=== PATIENT | female | born 1965 | race Caucasian/White ===

== ENCOUNTER 2017-02-08 18:01 | Emergency (ER) | payer OTHER ==
[2017-02-08] MEDS ORDERED: Benztropine 1 MG Tab PO ONE (20:07)
[2017-02-08] MEDS ORDERED: Haloperidol Lactate 5 MG/ML SDV IM ONE (20:07)
[2017-02-08] MEDS ORDERED: Orphenadrine 100 MG Tab.ER PO STA (20:08)
[2017-02-08] MEDS ORDERED: Ondansetron 4 MG Tab.DIS PO ONE (20:08)
[2017-02-08] MEDS ORDERED: Acetaminophen/Butalbital/Caffeine 325-50-40 MG Tab PO ONE (20:09)
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
[2017-02-08 21:14] VITALS: BP 144/74
== END 2017-02-08 20:45 | disposition home or self-care (01) ==
LOC: JD.ED 18:01
DX: R51 Headache (principal); I10 Essential (primary) hypertension; E78.00 Pure hypercholesterolemia, unspecified; K21.9 Gastro-esophageal reflux disease without esophagitis; F41.8 Other specified anxiety disorders; E03.9 Hypothyroidism, unspecified; Z98.890 Other specified postprocedural states; Z79.899 Other long term (current) drug therapy; Z90.49 Acquired absence of other specified parts of digestive tract; Z90.710 Acquired absence of both cervix and uterus; Z96.651 Presence of right artificial knee joint; Z88.1 Allergy status to other antibiotic agents; Z88.2 Allergy status to sulfonamides; Z88.5 Allergy status to narcotic agent; Z88.8 Allergy status to other drugs, medicaments and biological substances
CPT/HCPCS: 96372; 99284; A9270; J1630; 99283

== ENCOUNTER 2017-04-07 19:00 | Emergency (ER) | payer OTHER ==
[2017-04-07 19:13] VITALS: BP 187/109
[2017-04-07] MEDS ORDERED: HYDROmorphone 1 MG/ML Syringe IM ONE (19:27)
[2017-04-07] MEDS ORDERED: LORazepam 1 MG Tab PO ONE (19:27)
--- NOTE | 2017-04-07 19:33 | EDM.PDOC ---
ED HPI GENERAL MEDICAL PROBLEM - General Chief Complaint: Behavioral/Psych Stated Complaint: ANXIETY Time Seen by Provider: 04/07/17 19:07 Source of Information: Reports: Patient History Limitations: Reports: No Limitations - History of Present Illness INITIAL COMMENTS - FREE TEXT/NARRATIVE: The patient presents with an anxiety attack and headache. She just found out this afternoon that her daughter overdosed and she has been admitted to a hospital in [place]. She is in the ICU but she is stable. That is all she can find out because at this point her daughter will not let them tell her more. She is crying in the room. She has some bad teeth and a problem with her jaw and she has chronic headaches. She now has a headache. She has no numbness or weakness. Onset: Gradual Duration: Hour(s): Location: Reports: Head Quality: Reports: Sharp Severity: Severe Improves with: Reports: None Worsens with: Reports: None Associated Symptoms: Reports: No Other Symptoms - Related Data Allergies Allergy/AdvReac Type Severity Reaction Status Date / Time erythromycin base Allergy Other Verified 04/07/17 19:13 Sulfa (Sulfonamide Allergy Hives Verified 04/07/17 19:13 Antibiotics) sulfamethoxazole Allergy Hives Verified 04/07/17 19:13 [From Bactrim] trimethoprim [From Bactrim] Allergy Hives Verified 04/07/17 19:13 meloxicam AdvReac Tachycardia Verified 04/07/17 19:13 Home Meds: Home Meds Cyclobenzaprine [Flexeril] 10 mg PO Q8HR PRN 03/09/14 [History] Gabapentin [Neurontin] 600 mg PO TID 03/09/14 [History] Salsalate 1,500 mg PO QAM 03/09/14 [History] Zolpidem [Ambien] 10 mg PO BEDTIME 03/09/14 [History] Propranolol [Inderal LA] 160 mg PO DAILY 03/12/15 [History] Calcium Carb/Vitamin D3/Vit K1 [Viactiv Soft Chew Tablet] 2 tab PO DAILY [History] Ondansetron [Zofran ODT] 4 mg PO Q6H PRN 03/21/15 [History] Hydrocodone/Acetaminophen [Hydrocodon-Acetaminophen 5-325] 1 tab PO Q4HR PRN [History] Salsalate 750 mg PO QPM 07/04/15 [History] Levothyroxine 25 mcg PO ACBREAKFAST 08/19/15 [History] Losartan [Cozaar] 25 mg PO DAILY 08/19/15 [History] DULoxetine [Cymbalta] 90 mg PO DAILY 09/18/16 [History] Multivitamin [Multivitamins] 2 tab PO DAILY 09/18/16 [History] atorvaSTATin [Lipitor] 10 mg PO DAILY 09/18/16 [History] Pantoprazole [ProTONIX] 40 mg PO DAILY 01/05/17 [History] LORazepam [Ativan] 1 mg PO Q8HR PRN #20 tablet 04/07/17 [Rx] Past Medical History - Past Health History Medical/Surgical History: Denies Medical/Surgical History Cardiovascular History: Reports: High Cholesterol, Hypertension Gastrointestinal History: Reports: GERD, PUD Genitourinary History: Reports: Urinary Incontinence Other Genitourinary History: dysuria 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: Other OB/BYN History: uterus removed, x3 vag del Musculoskeletal History: Reports: Back Pain, Chronic, Fracture, Fibromyalgia, Osteoarthritis Other Musculoskeletal History: multiple fx, herniated discs Neurological History: Reports: Headaches, Chronic, Seizure Psychiatric History: Reports: Anxiety, Depression Endocrine/Metabolic History: Reports: Hypothyroidism Hematologic History: Reports: Other (See Below) Other Hematologic History: x1 with hysterectomy - Past Surgical History HEENT Surgical History: Reports: Naso-Sinus Surgery, Tonsillectomy, Other (See Below) GI Surgical History: Reports: Appendectomy Neurological Surgical History: Reports: Lumbar Spine Musculoskeletal Surgical History: Reports: Knee Replacement, ORIF, Other (See Below) Social & Family History - Tobacco Use Smoking Status *Q: Never Smoker Second Hand Smoke Exposure: No - Caffeine Use Caffeine Use: Reports: None - Alcohol Use Days Per Week of Alcohol Use: 0 - Recreational Drug Use Recreational Drug Use: No - Living Situation & Occupation Living situation: Reports: , with Spouse Occupation: Employed ED ROS GENERAL - Review of Systems Review Of Systems: See Below Constitutional: Reports: No Symptoms HEENT: Reports: No Symptoms Respiratory: Reports: No Symptoms Cardiovascular: Reports: No Symptoms Endocrine: Reports: No Symptoms GI/Abdominal: Reports: No Symptoms : Reports: No Symptoms Musculoskeletal: Reports: No Symptoms Skin: Reports: No Symptoms Neurological: Reports: Headache Psychiatric: Reports: Anxiety ED EXAM, BEHAVIORAL HEALTH - Physical Exam Exam: See Below Exam Limited By: No Limitations General Appearance: Alert, Anxious (and crying) Ears: Normal External Exam Nose: Normal Inspection Head: Atraumatic, Normocephalic Neck: Normal Inspection Respiratory/Chest: No Respiratory Distress, Lungs Clear, Normal Breath Sounds Cardiovascular: Regular Rate, Rhythm, No Edema, No Murmur GI/Abdominal: Soft, Non-Tender, No Organomegaly, No Mass Back Exam: Normal Inspection Extremities: Normal Inspection COURSE, BEHAVIORAL HEALTH COMP - Course Vital Signs: Last Vital Signs Temp 97.6 F 04/07/17 19:09 Pulse 83 04/07/17 19:09 Resp 20 04/07/17 19:09 BP 187/109 H 04/07/17 19:09 Pulse Ox 99 04/07/17 19:09 Orders, Labs, Meds: Active Orders 24 hr Category Date Time Status HYDROmorphone [Dilaudid] Med 04/07/17 19:27 Once 1 mg IM ONETIME ONE LORazepam [Ativan] Med 04/07/17 19:27 Once 1 mg PO ONETIME ONE Re-Assessment/Re-Exam: I ordered some ativan for the anxiety and some dilaudid for her headache. I will discharge her with some ativan. Departure - Departure Time of Disposition: 19:35 Disposition: Home, Self-Care 01 Condition: good Clinical Impression: Anxiety, Migraine - Discharge Information Prescriptions: LORazepam [Ativan] 1 mg PO Q8HR PRN #20 tablet PRN Reason: Anxiety Referrals: Jody Becerra, MOLD SANDER [Primary Care Provider] - (As needed) Forms: ED Department Discharge Additional Instructions: Take the ativan every 8 hours as needed for anxiety. Continue to take your other meds as prescribed. Please return if you are worse. - My Orders Last 24 Hours: My Active Orders 04/07/17 19:27 HYDROmorphone [Dilaudid] 1 mg IM ONETIME ONE LORazepam [Ativan] 1 mg PO ONETIME ONE - Assessment/Plan Last 24 Hours: My Active Orders 04/07/17 19:27 HYDROmorphone [Dilaudid] 1 mg IM ONETIME ONE LORazepam [Ativan] 1 mg PO ONETIME ONE
== END 2017-04-07 20:50 | disposition home or self-care (01) ==
LOC: JD.ED 19:00
DX: G43.909 Migraine, unspecified, not intractable, without status migrainosus (principal); F41.9 Anxiety disorder, unspecified; I10 Essential (primary) hypertension; E78.00 Pure hypercholesterolemia, unspecified; K21.9 Gastro-esophageal reflux disease without esophagitis; M19.90 Unspecified osteoarthritis, unspecified site; F32.9 Major depressive disorder, single episode, unspecified; E03.9 Hypothyroidism, unspecified; Z90.710 Acquired absence of both cervix and uterus; Z88.1 Allergy status to other antibiotic agents; Z88.2 Allergy status to sulfonamides; Z88.8 Allergy status to other drugs, medicaments and biological substances; Z79.899 Other long term (current) drug therapy; Z98.890 Other specified postprocedural states; Z90.49 Acquired absence of other specified parts of digestive tract; Z96.659 Presence of unspecified artificial knee joint
CPT/HCPCS: 96372; 99284; A9270; J1170

== ENCOUNTER 2017-07-08 09:47 | Emergency (ER) | payer OTHER ==
[2017-07-08] MEDS ORDERED: Sodium Chloride 0.9% 10 ML Syringe FLUSH PRN (11:27)
[2017-07-08] MEDS ORDERED: Ondansetron 4 MG/2 ML SDV IVPUSH ONE (11:28)
[2017-07-08] MEDS ORDERED: Alum Hydrox/Mag Hydrox/Simeth 30 ML, Lidocaine 2% 15 ML PO ONE ×2 (11:28)
--- NOTE | 2017-07-08 11:34 | EDM.PDOC ---
ED HPI GENERAL MEDICAL PROBLEM - General Chief Complaint: Gastrointestinal Problem Stated Complaint: DIZZY,NOT SLEEPING,HEARTBURN Time Seen by Provider: 07/08/17 11:06 Source of Information: Reports: Patient History Limitations: Reports: No Limitations - History of Present Illness INITIAL COMMENTS - FREE TEXT/NARRATIVE: Patient is a 52-year-old female presents ED complaining of severe acid reflux, nausea/vomiting, dizziness, and a migraine headache. States she has a history of severe acid reflux and takes Carafate and also Protonix daily. States as of the past few days stress level has increased in symptoms have worsened. She has been burping up/vomiting stomach acid causing increased irritation to her esophagus. She did not sleep last night secondary to the discomfort. Attempted to elevate her head to alleviate any of symptoms with no relief. In addition she has felt dizzy for the past week and a half. Headache is located to the left side of her head retro-orbital worsened with exposure to light. Again she' s been mildly dizzy with onset of headache. She does take hydrocodone for headaches and chronic pain. She sees a pain specialist in [place] for chronic back pain and fibromyalgia. She has taken all her home medications as prescribed for this morning. This includes gabapentin, propranolol, calcium supplementation, hydrocodone, levothyroxine, losartan, Cymbalta, MVI, Lipitor, and Protonix. Has mild chest pain with no shortness of breath 2nd to acid reflux. Denies any radiation ofdiscomfort. Denies any blood in her emesis. No diarrhea or history constipation. BMs been normal with no blood present. Denies any dysuria. In addition also denies any vision changes, n/t, and or weakness. Headache Pain Score (Numeric/FACES): 8 - Related Data Allergies Allergy/AdvReac Type Severity Reaction Status Date / Time erythromycin base Allergy Other Verified 07/08/17 10:09 Sulfa (Sulfonamide Allergy Hives Verified 07/08/17 10:09 Antibiotics) sulfamethoxazole Allergy Hives Verified 07/08/17 10:09 [From Bactrim] trimethoprim [From Bactrim] Allergy Hives Verified 07/08/17 10:09 meloxicam AdvReac Tachycardia Verified 07/08/17 10:09 Home Meds: Home Meds Gabapentin [Neurontin] 600 mg PO TID 03/09/14 [History] Zolpidem [Ambien] 10 mg PO BEDTIME 03/09/14 [History] Propranolol [Inderal LA] 160 mg PO DAILY 03/12/15 [History] Calcium Carb/Vitamin D3/Vit K1 [Viactiv Soft Chew Tablet] 2 tab PO DAILY [History] Ondansetron [Zofran ODT] 4 mg PO Q6H PRN 03/21/15 [History] Hydrocodone/Acetaminophen [Hydrocodon-Acetaminophen 5-325] 1 tab PO Q4HR PRN [History] Levothyroxine 25 mcg PO ACBREAKFAST 08/19/15 [History] Losartan [Cozaar] 25 mg PO DAILY 08/19/15 [History] DULoxetine [Cymbalta] 90 mg PO DAILY 09/18/16 [History] Multivitamin [Multivitamins] 2 tab PO DAILY 09/18/16 [History] atorvaSTATin [Lipitor] 10 mg PO DAILY 09/18/16 [History] Pantoprazole [ProTONIX] 40 mg PO DAILY 01/05/17 [History] GI Cocktail 30 ml PO ONETIME PRN #2 bottle 07/08/17 [Rx] Past Medical History - Past Health History Medical/Surgical History: Denies Medical/Surgical History Cardiovascular History: Reports: High Cholesterol, Hypertension Gastrointestinal History: Reports: GERD, PUD Genitourinary History: Reports: Urinary Incontinence Other Genitourinary History: dysuria 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: Other OB/BYN History: uterus removed, x3 vag del Musculoskeletal History: Reports: Back Pain, Chronic, Fracture, Fibromyalgia, Osteoarthritis Other Musculoskeletal History: multiple fx, herniated discs Neurological History: Reports: Headaches, Chronic, Seizure Psychiatric History: Reports: Anxiety, Depression Endocrine/Metabolic History: Reports: Hypothyroidism Hematologic History: Reports: Other (See Below) Other Hematologic History: x1 with hysterectomy - Past Surgical History HEENT Surgical History: Reports: Naso-Sinus Surgery, Tonsillectomy, Other (See Below) GI Surgical History: Reports: Appendectomy Neurological Surgical History: Reports: Lumbar Spine Musculoskeletal Surgical History: Reports: Joint Replacement, Knee Replacement, ORIF Social & Family History - Tobacco Use Smoking Status *Q: Never Smoker Second Hand Smoke Exposure: No - Caffeine Use Caffeine Use: Reports: None - Alcohol Use Days Per Week of Alcohol Use: 0 - Recreational Drug Use Recreational Drug Use: No - Living Situation & Occupation Living situation: Reports: , with Spouse Occupation: Employed ED ROS GENERAL - Review of Systems Review Of Systems: See Below Constitutional: Reports: Malaise, Decreased Appetite. Denies: Fever, Chills HEENT: Reports: No Symptoms Respiratory: Denies: Shortness of Breath, Cough, Sputum Cardiovascular: Reports: Chest Pain (lower sternal border). Denies: Dyspnea on Exertion, Palpitations, PND GI/Abdominal: Reports: Abdominal Pain (epigastric), Nausea, Vomiting. Denies: Constipation, Diarrhea : Reports: No Symptoms Musculoskeletal: Reports: No Symptoms Neurological: Reports: Dizziness, Headache. Denies: Confusion, Numbness, Pre- Existing Deficit, Seizure, Syncope, Tingling, Difficulty Walking, Weakness Psychiatric: Reports: No Symptoms ED EXAM, GI/ABD - Physical Exam Exam: See Below Exam Limited By: No Limitations General Appearance: Alert, WD/WN, Mild Distress, Other (sitting in dark room ) Eyes: Bilateral: Normal Appearance (PERRL pupils dilated. ), EOMI, Nystagmus ( none found) Ears: Normal External Exam, Normal Canal, Hearing Grossly Normal, Normal TMs Nose: Normal Inspection Throat/Mouth: Normal Inspection, Normal Oropharynx, Normal Voice, No Airway Compromise Head: Atraumatic, Normocephalic Neck: Normal Inspection, Supple, Non-Tender, Full Range of Motion. No: Lymphadenopathy (L), Lymphadenopathy (R) Respiratory/Chest: No Respiratory Distress, Lungs Clear, Normal Breath Sounds, No Accessory Muscle Use, Chest Non-Tender Cardiovascular: Normal Peripheral Pulses, Regular Rate, Rhythm GI/Abdominal Exam: Normal Bowel Sounds, Soft, No Organomegaly, No Distention, Tender (epigastric region, mild) Back Exam: Normal Inspection, Full Range of Motion. No: CVA Tenderness (L), CVA Tenderness (R) Extremities: Normal Inspection, Normal Range of Motion, Non-Tender, No Pedal Edema, Normal Capillary Refill Neurological: Alert, Oriented, CN II-XII Intact, Normal Cognition, No Motor/ Sensory Deficits, Other (cerebellar fx intact; finger to nose, rapid alternating movements, heal to [place]. No facial droop, slurred speach, difficulty swallowing, or sensory/motor deficits. ) Psychiatric: Normal Affect, Normal Mood Skin Exam: Warm, Dry, Intact, Normal Color Course - Vital Signs Last Recorded V/S: Last Vital Signs Temp 97.6 F 07/08/17 10:06 Pulse 75 07/08/17 14:40 Resp 16 07/08/17 14:40 BP 122/70 07/08/17 14:40 Pulse Ox 98 07/08/17 14:40 - Orders/Labs/Meds Labs: Laboratory Tests 07/08/17 07/08/17 Range/Units 13:09 13:09 WBC 11.82 H (3.98-10.04) K/mm3 RBC 4.01 (3.98-5.22) M/mm3 Hgb 10.7 L (11.2-15.7) gm/L Hct 33.8 L (34.1-44.9) % MCV 84.3 (79.4-94.8) fl MCH 26.7 (25.6-32.2) pg MCHC 31.7 L (32.2-35.5) g/dl RDW Std Deviation 47.8 H (36.4-46.3) fL Plt Count 359 (182-369) K/mm3 MPV 9.7 (9.4-12.3) fl Neut % (Auto) 65.0 (34.0-71.1) % Lymph % (Auto) 19.0 L (19.3-51.7) % [place] % (Auto) 8.1 (4.7-12.5) % Eos % (Auto) 7.3 H (0.7-5.8) Baso % (Auto) 0.3 (0.1-1.2) % Neut # (Auto) 7.69 H (1.56-6.13) K/mm3 Lymph # (Auto) 2.24 (1.18-3.74) K/mm3 [place] # (Auto) 0.96 H (0.24-0.36) K/mm3 Eos # (Auto) 0.86 H (0.04-0.36) K/mm3 Baso # (Auto) 0.03 (0.01-0.08) K/mm3 Sodium 139 (136-145) mEq/L Potassium 4.1 (3.5-5.1) mEq/L Chloride 104 (98-107) mEq/L Carbon Dioxide 28 (21-32) mEq/L Anion Gap 11.1 (5-15) BUN 13 (7-18) mg/dL Creatinine 0.9 (0.55-1.02) mg/dL Est Cr Clr Drug Dosing 56.52 mL/min Estimated GFR (MDRD) > 60 (>60) mL/min BUN/Creatinine Ratio 14.4 (14-18) Glucose 87 (74-106) mg/dL Calcium 8.9 (8.5-10.1) mg/dL Total Bilirubin 0.3 (0.2-1.0) mg/dL AST 19 (15-37) U/L ALT 19 (14-59) U/L Alkaline Phosphatase 112 (46-116) U/L Troponin I < 0.017 (0.00-0.056) ng/mL C-Reactive Protein 2.3 H* (<1.0) mg/dL Total Protein 6.9 (6.4-8.2) g/dl Albumin 3.5 (3.4-5.0) g/dl Globulin 3.4 gm/dL Albumin/Globulin Ratio 1.0 (1-2) Lipase 130 (73-393) U/L Meds: Medications Discontinued Medications Generic Name Dose Route Start Last Admin Trade Name Freq PRN Reason Stop Dose Admin Acetaminophen 975 mg 07/08/17 12:15 07/08/17 12:18 Tylenol PO 07/08/17 12:16 975 mg NOW ONE Administration Acetaminophen Confirm 07/08/17 12:20 07/08/17 12:24 Tylenol Administered 07/08/17 12:21 Not Given Dose 975 mg .ROUTE .STK-MED ONE Al Hydroxide/Mg Hydroxide 30 0 ml 07/08/17 11:28 07/08/17 11:52 ml/ Lidocaine HCl 15 ml PO 07/08/17 11:29 40 ml ONETIME ONE Administration Ondansetron HCl 4 mg 07/08/17 11:28 07/08/17 12:46 Zofran IVPUSH 07/08/17 11:29 4 mg ONETIME ONE Administration Sodium Chloride 10 ml 07/08/17 11:27 07/08/17 12:44 Saline Flush FLUSH 10 ml ASDIRECTED PRN Administration Keep Vein Open - Re-Assessments/Exams Free Text/Narrative Re-Assessment/Exam: IV will be established. Initial labs and studies include CBC, chem 14, CRP, lipase, troponin, EKG, and chest x-ray. Ordered Zofran 4 mg IVP and also GI cocktail by mouth. EKG: Sinus rhythm at a rate of 71. No acute ST changes noted. CXR: reviewed with no acute abnormalities. Final interpretation pending. 07/08/17 12:16 Ordered tylenol for headache. Labs reviewed: Labs reviewed: White blood cell count 11.82, hemoglobin 10.7, platelet count 359, sodium 139, potassium 4.1, creatinine 0.9, glucose 87, liver enzymes within normal limits, troponin less than 0.017, CRP 2.3, lipase 1: 30. 1357 headache is improved. Acid reflux has resolved completely. Patient's ready be discharged home. Will discharge patient home with instructions as documented. Departure - Departure Time of Disposition: 14:18 Disposition: Home, Self-Care 01 Condition: Good Clinical Impression: Heartburn, Migraine Gastritis Qualifiers: Gastritis type: unspecified gastritis Chronicity: chronic Gastritis bleeding: without bleeding Qualified Code(s): K29.50 - Unspecified chronic gastritis without bleeding Headache Qualifiers: Headache type: unspecified Headache chronicity pattern: acute headache Intractability: not intractable Qualified Code(s): R51 - Headache - Discharge Information Prescriptions: GI Cocktail 30 ml PO ONETIME PRN #2 bottle PRN Reason: Other Instructions: Abdominal Pain, Adult, [id number] Referrals: Jody Becerra HOIST OPERATOR [Primary Care Provider] - Forms: ED Department Discharge, ED Return to Work/School Form Additional Instructions: Continue taking Protonix, Zantac, and Carafate as prescribed. For severe symptoms take the GI cocktail 30 mls by mouth at a time. Sleep in a recliner elevating your head chest thus decreasing acid reflux symptoms. Refrain from any caffeinated beverages, chocolates, spicy foods, or any additional foods that may cause aggravation. Do not eat or drink within 4 hours of going to bed. Can also utilize Maalox intermittently for acid reflux following manufacturers instructions for dosing. Follow-up with your primary care provider in the next 2 -5 days for reevaluation symptoms do not improve. Referral to general surgery may be required to have EGD completed. No driving today. Stick with low residue diet for the next 2 days. Refrain from alcohol use. Do not take any NSAIDs. Return back to ED for any new or worsening symptoms.
[2017-07-08] MEDS ORDERED: Acetaminophen 325 MG Tab PO ONE (12:15)
[2017-07-08] MEDS ORDERED: Acetaminophen 325 MG Tab ONE (12:20)
--- NOTE | 2017-07-08 13:36 | CR ---
Chest: Frontal view of the chest was obtained. Comparison: Prior chest x-ray of 03/21/15. Heart size and mediastinum are within normal limits for technique. Incidental tortuosity of the thoracic aorta is seen. Slight scoliosis is noted within the spine with scattered degenerative change. Lungs are clear with no acute infiltrates. Impression: 1. Incidental findings. Nothing acute is identified on frontal chest x-ray. Diagnostic code #2
[2017-07-08 14:42] VITALS: BP 122/70
== END 2017-07-08 14:30 | disposition home or self-care (01) ==
LOC: JD.ED 09:47
DX: G43.909 Migraine, unspecified, not intractable, without status migrainosus (principal); R12 Heartburn; K29.50 Unspecified chronic gastritis without bleeding; I10 Essential (primary) hypertension; E78.00 Pure hypercholesterolemia, unspecified; K21.9 Gastro-esophageal reflux disease without esophagitis; M19.90 Unspecified osteoarthritis, unspecified site; F41.9 Anxiety disorder, unspecified; F32.9 Major depressive disorder, single episode, unspecified; E03.9 Hypothyroidism, unspecified; Z90.710 Acquired absence of both cervix and uterus; Z98.890 Other specified postprocedural states; Z96.659 Presence of unspecified artificial knee joint; Z79.899 Other long term (current) drug therapy; Z88.1 Allergy status to other antibiotic agents; Z88.2 Allergy status to sulfonamides; Z88.8 Allergy status to other drugs, medicaments and biological substances
CPT/HCPCS: 36415; 71010; 80053; 83690; 84484; 85025; 86140; 93005; 96374; 99284; A9270; J2405; J7050

== ENCOUNTER 2017-08-18 19:08 | Emergency (ER) | payer OTHER ==
[2017-08-18 19:12] VITALS: BP 109/82
[2017-08-18] MEDS ORDERED: Famotidine 20 MG/2 ML SDV IVPUSH ONE (19:29)
[2017-08-18] MEDS ORDERED: Alum Hydrox/Mag Hydrox/Simeth 30 ML, Lidocaine 2% 15 ML PO ONE ×2 (19:29)
[2017-08-18] MEDS ORDERED: Sodium Chloride 0.9% 10 ML Syringe FLUSH PRN (19:29)
[2017-08-18] MEDS ORDERED: Acetaminophen 325 MG Tab PO ONE (19:29)
[2017-08-18] MEDS ORDERED: Sucralfate Suspension 1 GM/10 ML Cup PO ONE (20:49)
--- NOTE | 2017-08-18 21:42 | EDM.PDOC ---
ED HPI GENERAL MEDICAL PROBLEM - General Chief Complaint: Chest Pain Stated Complaint: CHEST PAIN Time Seen by Provider: 08/18/17 19:35 Source of Information: Reports: Patient History Limitations: Reports: No Limitations - History of Present Illness INITIAL COMMENTS - FREE TEXT/NARRATIVE: 32-year-old female presents for evaluation treatment of chest pain. Reports that chest pain the and around 2 AM this morning. Reports associated symptoms of headache. Describes the chest pain as a burning sensation. Reports that it goes up into the left side of her neck. She tried Rolaids, Tums, Nexium and GI cocktail prior to arrival without any symptom relief. She also reports nausea but no vomiting. No shortness of breath, diaphoresis, syncope, lightheadedness, cough or cold symptoms. Reports a history of reflux. Chest Pain Score (Numeric/FACES): 5 - Related Data Allergies Allergy/AdvReac Type Severity Reaction Status Date / Time erythromycin base Allergy Other Verified 08/18/17 19:12 Sulfa (Sulfonamide Allergy Hives Verified 08/18/17 19:12 Antibiotics) sulfamethoxazole Allergy Hives Verified 08/18/17 19:12 [From Bactrim] trimethoprim [From Bactrim] Allergy Hives Verified 08/18/17 19:12 meloxicam AdvReac Tachycardia Verified 08/18/17 19:12 Home Meds: Home Meds Gabapentin [Neurontin] 600 mg PO TID 03/09/14 [History] Zolpidem [Ambien] 10 mg PO BEDTIME 03/09/14 [History] Propranolol [Inderal LA] 160 mg PO DAILY 03/12/15 [History] Calcium Carb/Vitamin D3/Vit K1 [Viactiv Soft Chew Tablet] 2 tab PO DAILY [History] Ondansetron [Zofran ODT] 4 mg PO Q6H PRN 03/21/15 [History] Hydrocodone/Acetaminophen [Hydrocodon-Acetaminophen 5-325] 1 tab PO Q4HR PRN [History] Levothyroxine 25 mcg PO ACBREAKFAST 08/19/15 [History] Losartan [Cozaar] 25 mg PO DAILY 08/19/15 [History] DULoxetine [Cymbalta] 90 mg PO DAILY 09/18/16 [History] Multivitamin [Multivitamins] 2 tab PO DAILY 09/18/16 [History] atorvaSTATin [Lipitor] 10 mg PO DAILY 09/18/16 [History] Pantoprazole [ProTONIX] 40 mg PO DAILY 01/05/17 [History] GI Cocktail 30 ml PO ONETIME PRN #2 bottle 07/08/17 [Rx] Sucralfate [Carafate] 1 gm PO TIDAC #300 ml 08/18/17 [Rx] Past Medical History - Past Health History Medical/Surgical History: Denies Medical/Surgical History Cardiovascular History: Reports: High Cholesterol, Hypertension Gastrointestinal History: Reports: GERD, PUD Genitourinary History: Reports: Urinary Incontinence Other Genitourinary History: dysuria 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: Other OB/BYN History: uterus removed, x3 vag del Musculoskeletal History: Reports: Back Pain, Chronic, Fracture, Fibromyalgia, Osteoarthritis Other Musculoskeletal History: multiple fx, herniated discs Neurological History: Reports: Headaches, Chronic, Seizure Psychiatric History: Reports: Anxiety, Depression Endocrine/Metabolic History: Reports: Hypothyroidism Hematologic History: Reports: Other (See Below) Other Hematologic History: x1 with hysterectomy - Past Surgical History HEENT Surgical History: Reports: Naso-Sinus Surgery, Tonsillectomy, Other (See Below) GI Surgical History: Reports: Appendectomy Neurological Surgical History: Reports: Lumbar Spine Musculoskeletal Surgical History: Reports: Joint Replacement, Knee Replacement, ORIF Social & Family History - Tobacco Use Smoking Status *Q: Unknown Ever Smoked Second Hand Smoke Exposure: No - Caffeine Use Caffeine Use: Reports: None - Alcohol Use Days Per Week of Alcohol Use: 0 - Recreational Drug Use Recreational Drug Use: No - Living Situation & Occupation Living situation: Reports: , with Spouse Occupation: Employed ED ROS GENERAL - Review of Systems Review Of Systems: See Below Constitutional: Denies: Fever Respiratory: Denies: Shortness of Breath, Cough Cardiovascular: Reports: Chest Pain. Denies: Lightheadedness, Syncope GI/Abdominal: Reports: Nausea. Denies: Abdominal Pain, Vomiting Neurological: Reports: Headache. Denies: Dizziness, Syncope ED EXAM, GI/ABD - Physical Exam Exam: See Below Exam Limited By: No Limitations General Appearance: Alert, WD/WN, No Apparent Distress Eyes: Bilateral: Normal Appearance Ears: Normal External Exam Nose: Normal Inspection Throat/Mouth: Normal Inspection, Normal Lips, Normal Oropharynx, Normal Voice, No Airway Compromise Neck: Normal Inspection Respiratory/Chest: No Respiratory Distress, Lungs Clear, Normal Breath Sounds Cardiovascular: Normal Peripheral Pulses, Regular Rate, Rhythm, No Murmur GI/Abdominal Exam: Normal Bowel Sounds, Soft, Non-Tender Neurological: Alert, Oriented, Normal Cognition Psychiatric: Normal Affect, Normal Mood Skin Exam: Warm, Dry, Normal Color EKG INTERPRETATION EKG Date: 08/18/17 Time: 19:10 Rhythm: NSR Rate (Beats/Min): 74 [place]: Normal P-Wave: Present QRS: Normal ST-T: Normal QT: Normal EKG Interpretation Comments: NSR at 74 bpm. No acute changes. Reviewed by myself and Dr. Perez. Course - Vital Signs Last Recorded V/S: Last Vital Signs Temp 36.9 C 08/18/17 19:09 Pulse 78 08/18/17 19:09 Resp 18 08/18/17 19:09 BP 109/82 08/18/17 19:09 Pulse Ox 99 08/18/17 19:09 - Orders/Labs/Meds Labs: Laboratory Tests 08/18/17 08/18/17 08/18/17 Range/Units 19:11 19:11 20:08 WBC 11.51 H (3.98-10.04) K/mm3 RBC 4.40 (3.98-5.22) M/mm3 Hgb 11.6 (11.2-15.7) gm/L Hct 37.3 (34.1-44.9) % MCV 84.8 (79.4-94.8) fl MCH 26.4 (25.6-32.2) pg MCHC 31.1 L (32.2-35.5) g/dl RDW Std Deviation 49.6 H (36.4-46.3) fL Plt Count 358 (182-369) K/mm3 MPV 9.9 (9.4-12.3) fl Neut % (Auto) 46.4 (34.0-71.1) % Lymph % (Auto) 38.9 (19.3-51.7) % [place] % (Auto) 8.3 (4.7-12.5) % Eos % (Auto) 5.7 (0.7-5.8) Baso % (Auto) 0.4 (0.1-1.2) % Neut # (Auto) 5.33 (1.56-6.13) K/mm3 Lymph # (Auto) 4.48 H (1.18-3.74) K/mm3 [place] # (Auto) 0.96 H (0.24-0.36) K/mm3 Eos # (Auto) 0.66 H (0.04-0.36) K/mm3 Baso # (Auto) 0.05 (0.01-0.08) K/mm3 Sodium 138 (136-145) mEq/L Potassium 4.8 (3.5-5.1) mEq/L Chloride 103 (98-107) mEq/L Carbon Dioxide 28 (21-32) mEq/L Anion Gap 11.8 (5-15) BUN 11 (7-18) mg/dL Creatinine 0.8 (0.55-1.02) mg/dL Est Cr Clr Drug Dosing TNP Estimated GFR (MDRD) > 60 (>60) mL/min BUN/Creatinine Ratio 13.8 L (14-18) Glucose 90 (74-106) mg/dL Calcium 9.2 (8.5-10.1) mg/dL Total Bilirubin 0.3 (0.2-1.0) mg/dL AST 27 (15-37) U/L ALT 21 (14-59) U/L Alkaline Phosphatase 127 H (46-116) U/L Troponin I < 0.017 (0.00-0.056) ng/mL Total Protein 7.8 (6.4-8.2) g/dl Albumin 4.0 (3.4-5.0) g/dl Globulin 3.8 gm/dL Albumin/Globulin Ratio 1.1 (1-2) Lipase 104 (73-393) U/L Urine Color Yellow (Yellow) Urine Appearance Slt cloudy H (Clear) Urine pH 6.0 (5.0-8.0) Ur Specific [place] 1.010 (1.005-1.030) Urine Protein Negative (Negative) Urine Glucose (UA) Negative (Negative) Urine Ketones Negative (Negative) Urine Occult Blood Negative (Negative) Urine Nitrite Negative (Negative) Urine Bilirubin Negative (Negative) Urine Urobilinogen 0.2 (0.2-1.0) Ur Leukocyte Esterase Negative (Negative) Urine RBC 0-5 (0-5) /hpf Urine WBC Not seen (0-5) /hpf Ur Epithelial Cells 5-10 H (0-5) /hpf Urine Bacteria Few (FEW) /hpf Urine Mucus Not seen (FEW) /hpf Meds: Medications Discontinued Medications Generic Name Dose Route Start Last Admin Trade Name Abisai PRN Reason Stop Dose Admin Acetaminophen 650 mg 08/18/17 19:29 08/18/17 19:37 Tylenol PO 08/18/17 19:30 650 mg NOW ONE Administration Al Hydroxide/Mg Hydroxide 30 0 ml 08/18/17 19:29 08/18/17 19:37 ml/ Lidocaine HCl 15 ml PO 08/18/17 19:30 45 ml ONETIME ONE Administration Famotidine 20 mg 08/18/17 19:29 08/18/17 19:41 Pepcid IVPUSH 08/18/17 19:30 20 mg ONETIME ONE Administration Sodium Chloride 10 ml 08/18/17 19:29 08/18/17 19:37 Saline Flush FLUSH 10 ml ASDIRECTED PRN Administration Keep Vein Open Sucralfate 1 gm 08/18/17 20:49 08/18/17 20:59 Carafate PO 08/18/17 20:50 1 gm ONETIME ONE Administration - Radiology Interpretation Free Text/Narrative:: chest xray shows no acute intrathoracic process. - Re-Assessments/Exams Free Text/Narrative Re-Assessment/Exam: 08/18/17 20:50 Reports pain has improved but continues to have discomfort. Requests another GI cocktail. Will give carafate. 08/18/17 21:24 Pain improved. I reviewed the labs, ekg and chest xray with the patient. Will try some carafate for her discomfort. Follow-up with PCP. Discharge instructions as documented. Departure - Departure Time of Disposition: 21:39 Disposition: Home, Self-Care 01 Condition: Good Clinical Impression: Heartburn - Discharge Information Prescriptions: Sucralfate [Carafate] 1 gm PO TIDAC #300 ml Instructions: Heartburn, [id number] Referrals: Jody Becerra SCHOOL TRANSPORTATION DIRECTOR [Primary Care Provider] - Forms: ED Department Discharge Additional Instructions: Take the Carafate as prescribed. 1 g or 10 mls by mouth 3 times a day 1 hour prior to meals. Continue with your other medications as prescribed. Follow-up with your primary care provider within 2 weeks for recheck of your symptoms. Please return to the ER if your symptoms change or worsen.
--- NOTE | 2017-08-19 08:12 | CR ---
Chest: Portable view of the chest was obtained. Comparison: Previous chest x-ray of 07/08/17. Heart size and mediastinum are within normal limits for portable technique. Lungs are clear. Slight scoliosis is noted within the spine. Impression: 1. Nothing acute is identified on portable chest x-ray. Diagnostic code #2
== END 2017-08-18 21:55 | disposition home or self-care (01) ==
LOC: JD.ED 19:08 → SUPCPDRO 19:08 → JD.ED 21:55
DX: R12 Heartburn (principal); I10 Essential (primary) hypertension; E78.00 Pure hypercholesterolemia, unspecified; K21.9 Gastro-esophageal reflux disease without esophagitis; F32.9 Major depressive disorder, single episode, unspecified; E03.9 Hypothyroidism, unspecified; Z90.710 Acquired absence of both cervix and uterus; Z90.49 Acquired absence of other specified parts of digestive tract; Z98.890 Other specified postprocedural states; Z96.659 Presence of unspecified artificial knee joint; Z79.899 Other long term (current) drug therapy; Z88.8 Allergy status to other drugs, medicaments and biological substances; Z88.1 Allergy status to other antibiotic agents; Z88.2 Allergy status to sulfonamides
CPT/HCPCS: 36415; 71010; 80053; 81001; 83690; 84484; 85025; 93005; 96374; 99285; A9270; J7050; 99284

== ENCOUNTER 2019-02-16 16:51 | Emergency (ER) | payer OTHER ==
[2019-02-16 17:03] VITALS: BP 162/81
--- NOTE | 2019-02-16 18:07 | EDM.PDOC ---
ED HPI GENERAL MEDICAL PROBLEM - General Chief Complaint: Chest Pain Stated Complaint: CHEST PAIN Time Seen by Provider: 02/16/19 17:30 Source of Information: Reports: Patient History Limitations: Reports: No Limitations - History of Present Illness INITIAL COMMENTS - FREE TEXT/NARRATIVE: 53 y/o female presents to ER with cc chest pain. She states pain started last evening about 2100. She describes the pain as a dull pressure in the center of her chest. She states the pain lasted about 45 minutes and went away. She denies SOB, nausea/vomiting, neck, jaw or arm pain. She states today the pain return about 1 pm and hasn't gone away. She states she became nauseated but did not vomit. She denies any fever or chills. Her PCP is Onset Date: 02/15/19 Onset Time: 21:00 Duration: Intermittent, Waxing/Waning Location: Reports: Chest Quality: Reports: Ache, Pressure Severity: Mild Improves with: Reports: None Worsens with: Reports: None Associated Symptoms: Reports: Chest Pain, Nausea/Vomiting. Denies: Fever/Chills , Loss of Appetite, Shortness of Breath, Syncope Middle Chest Pain Score (Numeric/FACES): 4 - Related Data Allergies Allergy/AdvReac Type Severity Reaction Status Date / Time erythromycin base Allergy Other Verified 02/16/19 17:03 Sulfa (Sulfonamide Allergy Hives Verified 02/16/19 17:03 Antibiotics) sulfamethoxazole Allergy Hives Verified 02/16/19 17:03 [From Bactrim] trimethoprim [From Bactrim] Allergy Hives Verified 02/16/19 17:03 meloxicam AdvReac Tachycardia Verified 02/16/19 17:03 Home Meds: Home Meds Gabapentin [Neurontin] 300 mg PO WITHLUNCH 03/09/14 [History] Zolpidem [Ambien] 10 mg PO BEDTIME 03/09/14 [History] Propranolol [Inderal LA] 160 mg PO DAILY 03/12/15 [History] Calcium Carb/Vitamin D3/Vit K1 [Viactiv Soft Chew Tablet] 2 tab PO BID 03/21/15 [History] Ondansetron [Zofran ODT] 4 mg PO Q6H PRN 03/21/15 [History] Hydrocodone/Acetaminophen [Hydrocodon-Acetaminophen 5-325] 1 tab PO Q4HR PRN [History] Levothyroxine 75 mcg PO ACBREAKFAST 08/19/15 [History] Losartan [Cozaar] 25 mg PO DAILY 08/19/15 [History] DULoxetine [Cymbalta] 90 mg PO DAILY 09/18/16 [History] Multivitamin [Multivitamins] 2 tab PO DAILY 09/18/16 [History] atorvaSTATin [Lipitor] 20 mg PO DAILY 09/18/16 [History] Aspirin/Acetaminophen/Caffeine [Headache Relief Gelcap] 1 tab PO Q8H PRN [History] Esomeprazole [NexIUM] 40 mg PO DAILY 06/17/18 [History] Gabapentin [Neurontin] 600 mg PO BID 06/17/18 [History] Naproxen Sodium [Aleve] 220 mg PO BID PRN 06/17/18 [History] Orphenadrine [Norflex] 100 mg PO BID 06/17/18 [History] Erenumab-Aooe [Aimovig Autoinjector (2 Pack)] 1 injection SUBCUT ASDIRECTED 02/01 [History] Past Medical History - Past Health History Medical/Surgical History: Denies Medical/Surgical History Cardiovascular History: Reports: High Cholesterol, Hypertension Gastrointestinal History: Reports: GERD, PUD Genitourinary History: Reports: Urinary Incontinence Other Genitourinary History: dysuria 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: uterus removed, x3 vag del Musculoskeletal History: Reports: Back Pain, Chronic, Fracture, Osteoarthritis Other Musculoskeletal History: multiple fx, herniated discs Neurological History: Reports: Headaches, Chronic, Seizure Psychiatric History: Reports: Anxiety, Depression Endocrine/Metabolic History: Reports: Hypothyroidism Hematologic History: Reports: Other (See Below) Other Hematologic History: x1 with hysterectomy - Past Surgical History HEENT Surgical History: Reports: Naso-Sinus Surgery, Tonsillectomy, Other (See Below) Other HEENT Surgeries/Procedures: wears glasses GI Surgical History: Reports: Appendectomy Female Surgical History: Reports: Hysterectomy Neurological Surgical History: Reports: Lumbar Spine Musculoskeletal Surgical History: Reports: Joint Replacement, Knee Replacement, ORIF, Other (See Below) Other Musculoskeletal Surgeries/Procedures:: Biopsy to right knee Dermatological Surgical History: Reports: Skin Biopsy Social & Family History - Family History Family Medical History: Noncontributory - Tobacco Use Smoking Status *Q: Never Smoker Second Hand Smoke Exposure: No - Caffeine Use Caffeine Use: Reports: None - Recreational Drug Use Recreational Drug Use: No - Living Situation & Occupation Living situation: Reports: , with Spouse Occupation: Employed ED ROS GENERAL - Review of Systems Review Of Systems: See Below Constitutional: Denies: Fever, Chills HEENT: Reports: No Symptoms Respiratory: Denies: Shortness of Breath Cardiovascular: Reports: Chest Pain. Denies: Dyspnea on Exertion Endocrine: Reports: No Symptoms GI/Abdominal: Reports: No Symptoms : Reports: No Symptoms Musculoskeletal: Reports: Foot Pain Skin: Reports: No Symptoms Neurological: Denies: Confusion, Dizziness, Headache Psychiatric: Reports: No Symptoms Hematologic/Lymphatic: Reports: No Symptoms Immunologic: Reports: No Symptoms ED EXAM, GENERAL - Physical Exam Exam: See Below Exam Limited By: No Limitations General Appearance: Alert, WD/WN, No Apparent Distress Ears: Normal External Exam, Normal Canal, Hearing Grossly Normal, Normal TMs Nose: Normal Inspection, Normal Mucosa, No Blood Throat/Mouth: Normal Inspection, Normal Lips, Normal Teeth, Normal Gums, Normal Oropharynx, Normal Voice, No Airway Compromise Head: Atraumatic, Normocephalic Neck: Normal Inspection, Supple, Non-Tender, Full Range of Motion Respiratory/Chest: No Respiratory Distress, Lungs Clear, Normal Breath Sounds, No Accessory Muscle Use, Chest Non-Tender Cardiovascular: Normal Peripheral Pulses, Regular Rate, Rhythm, No Edema, No Gallop, No JVD, No Murmur, No Rub Back Exam: Normal Inspection, Full Range of Motion Extremities: Normal Inspection, Normal Range of Motion, Non-Tender, No Pedal Edema, Normal Capillary Refill Neurological: Alert, Oriented, CN II-XII Intact, Normal Cognition, Normal Gait, Normal Reflexes, No Motor/Sensory Deficits Psychiatric: Normal Affect, Normal Mood Skin Exam: Warm, Dry, Intact, Normal Color, No Rash Lymphatic: No Adenopathy EKG INTERPRETATION EKG Date: 02/16/19 Time: 16:58 Rhythm: NSR Rate (Beats/Min): 65 EKG Interpretation Comments: t wave inverted in leads III & AVF, decreased voltage in precordial leads. Course - Vital Signs Last Recorded V/S: Last Vital Signs Temp 98.2 F 02/16/19 16:59 Pulse 66 02/16/19 16:59 Resp 12 02/16/19 16:59 BP 162/81 H 02/16/19 16:59 Pulse Ox 100 02/16/19 16:59 - Orders/Labs/Meds Orders: Active Orders 24 hr Category Date Time Status EKG Documentation Completion [RC] STAT Care 02/16/19 17:46 Active Chest 2V [CR] Stat Exams 02/16/19 17:46 Taken Labs: Laboratory Tests 02/16/19 02/16/19 02/16/19 Range/Units 18:05 18:05 18:05 WBC 9.22 (3.98-10.04) K/mm3 RBC 4.37 (3.98-5.22) M/mm3 Hgb 12.6 (11.2-15.7) gm/L Hct 39.8 (34.1-44.9) % MCV 91.1 (79.4-94.8) fl MCH 28.8 (25.6-32.2) pg MCHC 31.7 L (32.2-35.5) g/dl RDW Std Deviation 46.2 (36.4-46.3) fL Plt Count 265 (182-369) K/mm3 MPV 10.3 (9.4-12.3) fl Neut % (Auto) 45.4 (34.0-71.1) % Lymph % (Auto) 38.1 (19.3-51.7) % [place] % (Auto) 8.9 (4.7-12.5) % Eos % (Auto) 7.0 H (0.7-5.8) Baso % (Auto) 0.5 (0.1-1.2) % Neut # (Auto) 4.18 (1.56-6.13) K/mm3 Lymph # (Auto) 3.51 (1.18-3.74) K/mm3 [place] # (Auto) 0.82 H (0.24-0.36) K/mm3 Eos # (Auto) 0.65 H (0.04-0.36) K/mm3 Baso # (Auto) 0.05 (0.01-0.08) K/mm3 Sodium 144 (136-145) mEq/L Potassium 4.4 (3.5-5.1) mEq/L Chloride 105 (98-107) mEq/L Carbon Dioxide 30 (21-32) mEq/L Anion Gap 13.4 (5-15) BUN 10 (7-18) mg/dL Creatinine 0.9 (0.55-1.02) mg/dL Est Cr Clr Drug Dosing 60.99 mL/min Estimated GFR (MDRD) > 60 (>60) mL/min BUN/Creatinine Ratio 11.1 L (14-18) Glucose 81 (74-106) mg/dL Calcium 9.8 (8.5-10.1) mg/dL Total Bilirubin 0.3 (0.2-1.0) mg/dL AST 17 (15-37) U/L ALT 22 (14-59) U/L Alkaline Phosphatase 124 H (46-116) U/L Troponin I < 0.017 (0.00-0.056) ng/mL C-Reactive Protein 0.2 (<1.0) mg/dL Total Protein 7.3 (6.4-8.2) g/dl Albumin 3.8 (3.4-5.0) g/dl Globulin 3.5 gm/dL Albumin/Globulin Ratio 1.1 (1-2) Lipase 72 L (73-393) U/L Meds: Medications Discontinued Medications Generic Name Dose Route Start Last Admin Trade Name Freq PRN Reason Stop Dose Admin Ketorolac Tromethamine 60 mg 02/16/19 19:01 02/16/19 19:10 Toradol IM 02/16/19 19:02 60 mg ONETIME ONE Administration - Re-Assessments/Exams Free Text/Narrative Re-Assessment/Exam: 02/16/19 18:44 WBC 9.22 RBC 4.37 H & H 12.6/39.8 PLT 268. 02/16/19 19:02 Her Na+ 144 K + 4.4 BUN 10 creatine 0.9 Lipase 72 CPR <.2 her lipase was 72. Her chest x-ray reveals no acute findings. I think her pain may be due to anxiety or muscular skeletal. She received Toradol and her condition improved. I will discharge home with instructions to follow up with her PCP. Instructed to return to the ER for any new or acute worsening symptoms. She verbalized understanding and is comfortable with plan for discharge. She is stable at time of discharge. Departure - Departure Time of Disposition: 19:37 Disposition: Home, Self-Care 01 Condition: Good Clinical Impression: Atypical chest pain, Non-cardiac chest pain, Anxiety Gastritis Qualifiers: Gastritis type: unspecified gastritis Chronicity: unspecified Gastritis bleeding: without bleeding Qualified Code(s): K29.70 - Gastritis, unspecified, without bleeding Instructions: Nonspecific Chest Pain, Panic Attack, [id number], Social Anxiety Disorder, Adult Referrals: Meredith Aly RN CHILD [Primary Care Provider] - Forms: ED Department Discharge Additional Instructions: You have been diagnosis with atypical chest pain. Your test revealed your pain is NOT cardiac in nature. I feel your pain may be due to stress or gastritis. Follow up with your PCP. Return to the ER for any new or acute worsening symptoms. - My Orders Last 24 Hours: My Active Orders 02/16/19 17:46 EKG Documentation Completion [RC] STAT Chest 2V [CR] Stat - Assessment/Plan Last 24 Hours: My Active Orders 02/16/19 17:46 EKG Documentation Completion [RC] STAT Chest 2V [CR] Stat
[2019-02-16] MEDS ORDERED: Ketorolac 60 MG/2 ML SDV IM ONE (19:01)
--- NOTE | 2019-02-17 06:47 | CR ---
Chest: Two views of the chest were obtained. Comparison: Prior chest x-ray of 08/18/17. Heart size and mediastinum are normal. Lungs are clear. Bony structures show scattered degenerative change within the spine. Impression: 1. Incidental finding. Nothing acute is seen on two-view chest x-ray. Diagnostic code #2
== END 2019-02-16 19:45 | disposition home or self-care (01) ==
LOC: JD.ED 16:51
DX: K29.70 Gastritis, unspecified, without bleeding (principal); F41.9 Anxiety disorder, unspecified; F32.9 Major depressive disorder, single episode, unspecified; E03.9 Hypothyroidism, unspecified; I10 Essential (primary) hypertension; Z88.1 Allergy status to other antibiotic agents; Z88.2 Allergy status to sulfonamides; Z79.899 Other long term (current) drug therapy
CPT/HCPCS: 36415; 71046; 80053; 83690; 84484; 85025; 86140; 93005; 96372; 99285; J1885; 93010

== ENCOUNTER 2019-08-29 16:57 | Emergency (ER) | payer BC ==
[2019-08-29 17:13] VITALS: BP 158/84; PULSE 69
[2019-08-29] MEDS ORDERED: HYDROmorphone 0.5 MG/0.5 ML Syringe IVPUSH ONE ×2 (17:17→18:17)
[2019-08-29] MEDS ORDERED: Metoclopramide 10 MG/2 ML SDV IVPUSH ONE (17:17)
[2019-08-29] MEDS ORDERED: diphenhydrAMINE 50 MG/ML SDV IVPUSH ONE (17:17)
--- NOTE | 2019-08-29 17:18 | EDM.PDOC ---
ED HPI GENERAL MEDICAL PROBLEM - General Chief Complaint: Headache Stated Complaint: HEADACHE Time Seen by Provider: 08/29/19 17:08 Source of Information: Reports: Patient History Limitations: Reports: No Limitations - History of Present Illness INITIAL COMMENTS - FREE TEXT/NARRATIVE: Patient has a history of recurrent migraine headaches. It's been a long time since she said to come to the ED for headache relief. Reports however she was unable to receive her Botox shots this last cycle because of a right ear infection. She was told that after the infection is settled for 2 weeks she can have her Botox shots resumed. Today she's had an awful headache and has been bedridden for most of the day. Associated nausea without any vomiting but she hasn't eaten either. Headache is felt primarily in the base of her neck and bilateral temporal aspects of the scalp. It is described as throbbing and pounding. She is mildly light sensitive. Current headache is no different than what she is expansion the past. Onset: Gradual Onset Date: 08/27/19 Duration: Day(s):, Constant, Getting Worse Location: Reports: Head (Severe headache. No different than what she is expansion the past.) Quality: Reports: Ache, Throbbing, Other Severity: Severe Improves with: Reports: None Worsens with: Reports: Other Context: Denies: Activity (Standing upright or bright lights make the pain worse.), Exercise, Lifting, Sick Contact, Trauma, Other Associated Symptoms: Reports: Headaches, Loss of Appetite, Malaise, Nausea/ Vomiting (Nausea without vomiting.). 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: Reports: Other (see below) Other Treatments RESPIRATORY SERVICES MANAGER: aleve; exedrin migraine;malaxt Right Headache Pain Score (Numeric/FACES): 7 - Related Data Allergies Allergy/AdvReac Type Severity Reaction Status Date / Time erythromycin base Allergy Other Verified 08/29/19 17:30 Sulfa (Sulfonamide Allergy Hives Verified 08/29/19 17:30 Antibiotics) sulfamethoxazole Allergy Hives Verified 08/29/19 17:30 [From Bactrim] trimethoprim [From Bactrim] Allergy Hives Verified 08/29/19 17:30 meloxicam AdvReac Tachycardia Verified 08/29/19 17:30 Home Meds: Home Meds Gabapentin [Neurontin] 300 mg PO WITHLUNCH 03/09/14 [History] Zolpidem [Ambien] 10 mg PO BEDTIME 03/09/14 [History] Propranolol [Inderal LA] 160 mg PO DAILY 03/12/15 [History] Levothyroxine 75 mcg PO ACBREAKFAST 08/19/15 [History] Losartan [Cozaar] 25 mg PO DAILY 08/19/15 [History] DULoxetine [Cymbalta] 90 mg PO DAILY 09/18/16 [History] atorvaSTATin [Lipitor] 40 mg PO DAILY 09/18/16 [History] Aspirin/Acetaminophen/Caffeine [Headache Relief Gelcap] 1 tab PO Q8H PRN [History] Esomeprazole [NexIUM] 40 mg PO DAILY 06/17/18 [History] Gabapentin [Neurontin] 600 mg PO BID 06/17/18 [History] Orphenadrine [Norflex] 100 mg PO BID 06/17/18 [History] Metoclopramide [Reglan] 5 mg PO Q6H PRN 05/30/19 [History] Onabotulinumtoxina [Botox] 1 applic INJECT Q3M 08/29/19 [History] Polyethylene Glycol 3350 [MiraLAX] 1 packet PO DAILY 08/29/19 [History] Rizatriptan Benzoate [Rizatriptan] 10 mg PO DAILY PRN 08/29/19 [History] Past Medical History - Past Health History Medical/Surgical History: Denies Medical/Surgical History Cardiovascular History: Reports: High Cholesterol, Hypertension Gastrointestinal History: Reports: GERD, PUD, Other (See Below) Other Gastrointestinal History: chronic constipation Genitourinary History: Reports: Urinary Incontinence Other Genitourinary History: dysuria 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 PROCESS IMPROVEMENT History: uterus removed, x3 vag del Musculoskeletal History: Reports: Back Pain, Chronic, Fracture, Osteoarthritis Other Musculoskeletal History: multiple fx, herniated discs Neurological History: Reports: Headaches, Chronic, Seizure Psychiatric History: Reports: Anxiety, Depression Endocrine/Metabolic History: Reports: Hypothyroidism Hematologic History: Reports: Other (See Below) Other Hematologic History: x1 with hysterectomy - Past Surgical History HEENT Surgical History: Reports: Naso-Sinus Surgery, Tonsillectomy, Other (See Below) Other HEENT Surgeries/Procedures: wears glasses, multiple facial fractures GI Surgical History: Reports: Appendectomy Female Surgical History: Reports: Hysterectomy Neurological Surgical History: Reports: Lumbar Spine Musculoskeletal Surgical History: Reports: Joint Replacement, Knee Replacement, ORIF, Other (See Below) Other Musculoskeletal Surgeries/Procedures:: Biopsy to right knee Dermatological Surgical History: Reports: Skin Biopsy Social & Family History - Family History Family Medical History: Noncontributory - Tobacco Use Smoking Status *Q: Never Smoker - Caffeine Use Caffeine Use: Reports: Coffee, Soda - Recreational Drug Use Recreational Drug Use: No - Living Situation & Occupation Living situation: Reports: , with Spouse Occupation: Employed ED ROS GENERAL - Review of Systems Review Of Systems: See Below Constitutional: Reports: Malaise, Weakness, Fatigue, Decreased Appetite. Denies : Fever, Chills HEENT: Reports: Glasses (Photosensitivity), Other Respiratory: Reports: No Symptoms Cardiovascular: Reports: No Symptoms Endocrine: Reports: No Symptoms GI/Abdominal: Reports: Nausea (Usually associated with the headaches.) : Reports: No Symptoms Musculoskeletal: Reports: Back Pain Skin: Reports: No Symptoms Neurological: Reports: No Symptoms Psychiatric: Reports: No Symptoms Hematologic/Lymphatic: Reports: No Symptoms Immunologic: Reports: No Symptoms - Physical Exam Exam: See Below Exam Limited By: No Limitations General Appearance: Alert, WD/WN, Moderate Distress, Other (Vital signs show afebrile. Temperature is a right as it registers at 35.7. Pulse is 69 respiratory distress 20 BP 158/84. Pulse ox 98%.) Eye Exam: Bilateral Eye: Normal Inspection, PERRL Ears: Normal TMs (Her right tympanic membrane is completely back to normal without any JOHN noted. The floor of the ear canal is slightly dry) Throat/Mouth: Normal Inspection ( but not actively infected or inflamed.), Normal Lips, Normal Oropharynx, Other Head Exam: Atraumatic (Tongue is mildly dry and coated), Normocephalic Neck: Normal Inspection, Limited Range of Motion, Tender Lateral. No: Full Range of Motion, Lymphadenopathy (L), Lymphadenopathy (R) Respiratory/Chest: No Respiratory Distress, Lungs Clear, Normal Breath Sounds, No Accessory Muscle Use (Tender lateral aspect of the neck bilaterally particular the base of her skull.), Respiratory Distress Cardiovascular: Normal Peripheral Pulses, Regular Rate, Rhythm, No Edema, No Gallop, No Murmur, No Rub GI/Abdominal: Normal Bowel Sounds, Soft, Non-Tender, No Organomegaly, No Mass, Pelvis Stable Neuro Exam (Abbreviated): Alert, Oriented, CN II-XII Intact, Normal Cognition, Normal Gait, Normal Reflexes, No Motor/Sensory Deficits Extremities: Normal Inspection, Normal Range of Motion, Non-Tender Psychiatric: Flat Affect, Other Skin Exam: Warm (Obviously not feeling well.), Dry, Intact, Normal Color, No Rash Course - Vital Signs Last Recorded V/S: Last Vital Signs Temp 35.7 C 08/29/19 17:11 Pulse 69 08/29/19 17:11 Resp 20 08/29/19 17:11 BP 158/84 H 08/29/19 17:11 Pulse Ox 98 08/29/19 17:11 - Orders/Labs/Meds Orders: Active Orders 24 hr Category Date Time Status Dextrose 5%-0.9% NaCl [Dextrose 5%-Normal Saline] 1,000 Med 08/29/19 17:30 Active ml IV ASDIRECTED Ketorolac [Toradol] Med 08/29/19 17:30 Active 30 mg IVPUSH ONETIME Medication Orders Dextrose/Sodium Chloride (Dextrose 5%-Normal Saline) 1,000 mls @ 999 mls/hr IV ASDIRECTED JAN Last Admin: 08/29/19 17:47 Dose: 999 mls/hr Ketorolac Tromethamine (Toradol) 30 mg IVPUSH ONETIME JAN Last Admin: 08/29/19 17:43 Dose: 30 mg Meds: Medications Generic Name Dose Route Start Last Admin Trade Name Freq PRN Reason Stop Dose Admin Dextrose/Sodium Chloride 1,000 mls @ 999 mls/hr 08/29/19 17:30 08/29/19 17:47 Dextrose 5%-Normal Saline IV 999 mls/hr ASDIRECTED JAN Administration Ketorolac Tromethamine 30 mg 08/29/19 17:30 08/29/19 17:43 Toradol IVPUSH 30 mg ONETIME JAN Administration Discontinued Medications Generic Name Dose Route Start Last Admin Trade Name Freq PRN Reason Stop Dose Admin Diphenhydramine HCl 25 mg 08/29/19 17:17 08/29/19 17:33 Benadryl IVPUSH 08/29/19 17:18 25 mg ONETIME ONE Administration Hydromorphone HCl 0.5 mg 08/29/19 17:17 08/29/19 17:44 Dilaudid IVPUSH 08/29/19 17:18 0.5 mg ONETIME ONE Administration Hydromorphone HCl 0.5 mg 08/29/19 18:17 08/29/19 18:27 Dilaudid IVPUSH 08/29/19 18:18 0.5 mg ONETIME ONE Administration Metoclopramide HCl 10 mg 08/29/19 17:17 08/29/19 17:30 Reglan IVPUSH 08/29/19 17:18 10 mg ONETIME ONE Administration - Radiology Interpretation Free Text/Narrative:: 54-year-old female presents to the ED with a bad headache. These usually migrainous in etiology or certainly neurogenic. She usually has really good relief with Botox injections but it was unable to get them last month due to development of a cold and a right ear infection. Amoxil did not help the infection initially and she had to finish his second course of antibiotic. She still has pain in her right ear but on examination the ear has completely cleared with no JOHN either. Headache is similar to what she is excretion the past with a lot of pain particularly in her neck and at the base of her skull that radiates up into the frontal cortex bilaterally. Neuro exam is otherwise normal. Plan she hasn't ate or drink much today. We'll give her IV D5 normal saline at open. Will give her Dilaudid 0.5 mg IV with Toradol 30 mg IV and Reglan 10 mg IV and Benadryl 25 mg IV for pain relief. - Re-Assessments/Exams Free Text/Narrative Re-Assessment/Exam: 08/29/19 18:17 still rates her headache as a 4 out of 10. Primarily left frontal temporal. Will repeat Dilaudid 0.5 mg IV. Departure - Departure Time of Disposition: 18:45 Disposition: Home, Self-Care 01 Condition: Fair Clinical Impression: TMJ, Temporomandibular [id number] syndrome, Myofascial Pain, Trigeminal neuralgia, Migraine - Discharge Information *PRESCRIPTION DRUG MONITORING PROGRAM REVIEWED*: No *COPY OF PRESCRIPTION DRUG MONITORING REPORT IN PATIENT NAIDA: No Instructions: Recurrent Migraine Headache, Trigeminal Neuralgia Referrals: Meredith Aly NP [Primary Care Provider] - Forms: ED Department Discharge Additional Instructions: Evaluation the emergency room today in regards to a severe generalized headache starting mainly in the supple aspect of your skull and then migrating upwards towards the frontal temporal aspect of both sides of your head. Similar to what you've experienced many times in the past. You are treated in the ED with intravenous D5 normal saline to provide some degree of hydration as you have not ate or drink much today. You're treated with medications Benadryl 25 mg IV with Reglan 10 mg IV and Toradol 30 mg IV. Also Dilaudid 0.5 mg x 2 doses IV for headache and nausea relief. Suggest home to rest and sleep for a period of time. Resume regular diet when able. Of note I believe you're a right ear infection is completely better. Therefore I think it is okay to go ahead and book a time for her Botox shots to try and prevent the headaches from reoccurring. - My Orders Last 24 Hours: My Active Orders 08/29/19 17:30 Dextrose 5%-0.9% NaCl [Dextrose 5%-Normal Saline] 1,000 ml IV ASDIRECTED Ketorolac [Toradol] 30 mg IVPUSH ONETIME - Assessment/Plan Last 24 Hours: My Active Orders 08/29/19 17:30 Dextrose 5%-0.9% NaCl [Dextrose 5%-Normal Saline] 1,000 ml IV ASDIRECTED Ketorolac [Toradol] 30 mg IVPUSH ONETIME
[2019-08-29] MEDS ORDERED: Ketorolac 30 MG/ML SDV IVPUSH SCH (17:30)
[2019-08-29] MEDS ORDERED: Dextrose 5%-0.9% NaCl 1,000 ML IV SCH (17:30)
== END 2019-08-29 18:58 | disposition home or self-care (01) ==
LOC: JD.ED 16:57
DX: G43.909 Migraine, unspecified, not intractable, without status migrainosus (principal); M26.629 Arthralgia of temporomandibular joint, unspecified side; G50.0 Trigeminal neuralgia; M79.18 Myalgia, other site; E78.00 Pure hypercholesterolemia, unspecified; I10 Essential (primary) hypertension; K21.9 Gastro-esophageal reflux disease without esophagitis; K27.9 Peptic ulcer, site unspecified, unspecified as acute or chronic, without hemorrhage or perforation; E03.9 Hypothyroidism, unspecified; F32.9 Major depressive disorder, single episode, unspecified; F41.9 Anxiety disorder, unspecified; Z88.1 Allergy status to other antibiotic agents; Z88.2 Allergy status to sulfonamides; Z88.6 Allergy status to analgesic agent; Z79.899 Other long term (current) drug therapy; Z79.82 Long term (current) use of aspirin; Z79.890 Hormone replacement therapy
CPT/HCPCS: 96361; 96374; 96375; 96376; 99283; J1170; J1200; J1885; J2765; J7042

== ENCOUNTER 2019-09-26 12:50 | Emergency (ER) | payer BC ==
[2019-09-26 13:04] VITALS: BP 160/83; PULSE 65
[2019-09-26] MEDS ORDERED: Sodium Chloride 0.9% 10 ML Syringe FLUSH PRN (13:11)
[2019-09-26] MEDS ORDERED: Alum Hydrox/Mag Hydrox/Simeth 30 ML, Lidocaine 2% 10 ML PO ONE ×2 (13:11)
--- NOTE | 2019-09-26 13:26 | EDM.PDOC ---
ED HPI GENERAL MEDICAL PROBLEM - General Chief Complaint: Back Pain or Injury Stated Complaint: RIGHT SIDE RIB PAIN Time Seen by Provider: 09/26/19 13:02 - History of Present Illness INITIAL COMMENTS - FREE TEXT/NARRATIVE: Patient's unfortunate 54-year-old female who presents to emergency Department today with complaint of right mid back pain. Patient reports she was in her normal state of health until 2 days ago when she was having some mild right-sided back pain and realized a roller at home. Patient reports that she woke up the next day having increasing pain to her right mid back into this morning it radiated around to her right upper quadrant of her abdomen since she became concerned and came to the emergency department for evaluation. Patient reports no fever no chills no night emesis no hematochezia and no melena no dysuria no frequency no urgency no vaginal discharge. However, patient does report that she has been having mild nausea and does not feeling like eating and has not eaten today. Patient describes the pain as a mild aching type sensation not worsened with deep inspiration or movements nothing makes the symptoms better Right Back Pain Score (Numeric/FACES): 8 - Related Data Allergies Allergy/AdvReac Type Severity Reaction Status Date / Time erythromycin base Allergy Other Verified 09/26/19 13:05 Sulfa (Sulfonamide Allergy Hives Verified 09/26/19 13:05 Antibiotics) sulfamethoxazole Allergy Hives Verified 09/26/19 13:05 [From Bactrim] trimethoprim [From Bactrim] Allergy Hives Verified 09/26/19 13:05 meloxicam AdvReac Tachycardia Verified 09/26/19 13:05 Home Meds: Home Meds Gabapentin [Neurontin] 300 mg PO WITHLUNCH 03/09/14 [History] Zolpidem [Ambien] 10 mg PO BEDTIME 03/09/14 [History] Propranolol [Inderal LA] 160 mg PO DAILY 03/12/15 [History] Levothyroxine 75 mcg PO ACBREAKFAST 08/19/15 [History] Losartan [Cozaar] 25 mg PO DAILY 08/19/15 [History] DULoxetine [Cymbalta] 90 mg PO DAILY 09/18/16 [History] atorvaSTATin [Lipitor] 40 mg PO DAILY 09/18/16 [History] Aspirin/Acetaminophen/Caffeine [Headache Relief Gelcap] 1 tab PO Q8H PRN [History] Esomeprazole [NexIUM] 40 mg PO DAILY 06/17/18 [History] Gabapentin [Neurontin] 600 mg PO BID 06/17/18 [History] Orphenadrine [Norflex] 100 mg PO BID 06/17/18 [History] Metoclopramide [Reglan] 5 mg PO Q6H PRN 05/30/19 [History] Onabotulinumtoxina [Botox] 1 applic INJECT Q3M 08/29/19 [History] Polyethylene Glycol 3350 [MiraLAX] 1 packet PO DAILY 08/29/19 [History] Rizatriptan Benzoate [Rizatriptan] 10 mg PO DAILY PRN 08/29/19 [History] Past Medical History - Past Health History Medical/Surgical History: Denies Medical/Surgical History Cardiovascular History: Reports: High Cholesterol, Hypertension Gastrointestinal History: Reports: GERD, PUD, Other (See Below) Other Gastrointestinal History: chronic constipation Genitourinary History: Reports: Urinary Incontinence Other Genitourinary History: dysuria 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: Reports: Other POLICY 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: uterus removed, x3 vag del Musculoskeletal History: Reports: Arthritis, Back Pain, Chronic, Fracture, Osteoarthritis Other Musculoskeletal History: multiple fx, herniated discs Neurological History: Reports: Headaches, Chronic, Seizure Psychiatric History: Reports: Anxiety, Depression Endocrine/Metabolic History: Reports: Hypothyroidism Hematologic History: Reports: Other (See Below) Other Hematologic History: x1 with hysterectomy - Past Surgical History HEENT Surgical History: Reports: Naso-Sinus Surgery, Tonsillectomy, Other (See Below) Other HEENT Surgeries/Procedures: wears glasses, multiple facial fractures GI Surgical History: Reports: Appendectomy Female Surgical History: Reports: Hysterectomy Neurological Surgical History: Reports: Lumbar Spine Musculoskeletal Surgical History: Reports: Joint Replacement, Knee Replacement, ORIF, Other (See Below) Other Musculoskeletal Surgeries/Procedures:: Biopsy to right knee Dermatological Surgical History: Reports: Skin Biopsy Social & Family History - Family History Family Medical History: Noncontributory - Tobacco Use Smoking Status *Q: Never Smoker - Caffeine Use Caffeine Use: Reports: Coffee - Recreational Drug Use Recreational Drug Use: No - Living Situation & Occupation Living situation: Reports: , with Spouse Occupation: Employed ED ROS GENERAL - Review of Systems Review Of Systems: See Below Constitutional: Denies: Fever, Chills HEENT: Reports: No Symptoms Respiratory: Reports: No Symptoms Cardiovascular: Reports: No Symptoms Endocrine: Reports: No Symptoms GI/Abdominal: Reports: Abdominal Pain, Nausea. Denies: Hematemesis, Hematochezia, Vomiting : Reports: No Symptoms Musculoskeletal: Reports: Back Pain Skin: Reports: No Symptoms ED EXAM,LOWER BACK PAIN/INJURY - Physical Exam Exam: See Below Exam Limited By: No Limitations General Appearance: Alert, WD/WN, Mild Distress Head: Atraumatic, Normocephalic Neck: Normal Inspection, Supple, Non-Tender, Full Range of Motion Respiratory/Chest: No Respiratory Distress, Lungs Clear, Normal Breath Sounds, No Accessory Muscle Use, Chest Non-Tender Cardiovascular: Normal Peripheral Pulses, Regular Rate, Rhythm, No Edema, No Gallop, No JVD, No Murmur, No Rub GI/Abdominal: Normal Bowel Sounds, Soft, Other (Moderate epigastric tenderness negative Virgen's) (Female) Exam: Deferred Rectal (Female) Exam: Deferred Back Exam: Other (Mild right mid back tenderness or CVA tenderness) Extremities: Normal Inspection, Normal Range of Motion, Non-Tender, No Pedal Edema, Normal Capillary Refill Neurological: Alert, Normal Mood/Affect, Normal Dorsiflexion, CN II-XII Intact, Normal Plantar Flexion, Normal Gait, Normal Reflexes, No Motor/Sensory Deficits , Oriented x 3 Psychiatric: Normal Affect, Normal Mood Skin Exam: Warm, Dry, Intact, Normal Color, No Rash Lymphatic: No Adenopathy EKG INTERPRETATION EKG Date: 09/26/19 Time: 13:26 Rhythm: NSR Barnard: Normal P-Wave: Present QRS: Normal ST-T: Normal QT: Normal Course - Vital Signs Last Recorded V/S: Last Vital Signs Temp 97.9 F 09/26/19 13:01 Pulse 65 09/26/19 13:01 Resp 15 09/26/19 13:01 BP 160/83 H 09/26/19 13:01 Pulse Ox 99 09/26/19 13:01 - Orders/Labs/Meds Orders: Active Orders 24 hr Category Date Time Status EKG Documentation Completion [RC] ASDIRECTED Care 09/26/19 13:12 Active CULTURE URINE [RM] Stat Lab 09/26/19 14:34 Received Sodium Chloride 0.9% [Saline Flush] Med 09/26/19 13:11 Active 10 ml FLUSH ASDIRECTED PRN Saline Lock Insert [OM.PC] Stat Oth 09/26/19 13:11 Ordered EKG 12 Lead [EK] Stat Ther 09/26/19 13:11 Ordered Medication Orders Sodium Chloride (Saline Flush) 10 ml FLUSH ASDIRECTED PRN PRN Reason: Keep Vein Open Last Admin: 09/26/19 13:35 Dose: 10 ml Labs: Laboratory Tests 09/26/19 09/26/19 09/26/19 Range/Units 13:35 13:57 14:34 WBC 7.32 (3.98-10.04) K/mm3 RBC 4.71 (3.98-5.22) M/mm3 Hgb 13.3 (11.2-15.7) gm/dl Hct 41.9 (34.1-44.9) % MCV 89.0 (79.4-94.8) fl MCH 28.2 (25.6-32.2) pg MCHC 31.7 L (32.2-35.5) g/dl RDW Std Deviation 44.9 (36.4-46.3) fL Plt Count 232 (182-369) K/mm3 MPV 10.2 (9.4-12.3) fl Neut % (Auto) 46.6 (34.0-71.1) % Lymph % (Auto) 35.2 (19.3-51.7) % [place] % (Auto) 9.2 (4.7-12.5) % Eos % (Auto) 8.5 H (0.7-5.8) Baso % (Auto) 0.4 (0.1-1.2) % Neut # (Auto) 3.41 (1.56-6.13) K/mm3 Lymph # (Auto) 2.58 (1.18-3.74) K/mm3 [place] # (Auto) 0.67 H (0.24-0.36) K/mm3 Eos # (Auto) 0.62 H (0.04-0.36) K/mm3 Baso # (Auto) 0.03 (0.01-0.08) K/mm3 Sodium 145 (136-145) mEq/L Potassium 4.6 (3.5-5.1) mEq/L Chloride 108 H (98-107) mEq/L Carbon Dioxide 30 (21-32) mEq/L Anion Gap 11.6 (5-15) BUN 11 (7-18) mg/dL Creatinine 0.8 (0.55-1.02) mg/dL Est Cr Clr Drug Dosing 67.80 mL/min Estimated GFR (MDRD) > 60 (>60) mL/min BUN/Creatinine Ratio 13.8 L (14-18) Glucose 81 (74-106) mg/dL Calcium 9.2 (8.5-10.1) mg/dL Total Bilirubin 0.4 (0.2-1.0) mg/dL AST 12 L (15-37) U/L ALT 20 (14-59) U/L Alkaline Phosphatase 121 H (46-116) U/L Troponin I < 0.017 (0.00-0.056) ng/mL Total Protein 7.2 (6.4-8.2) g/dl Albumin 3.7 (3.4-5.0) g/dl Globulin 3.5 gm/dL Albumin/Globulin Ratio 1.1 (1-2) Lipase 61 L (73-393) U/L Urine Color Yellow (Yellow) Urine Appearance Clear (Clear) Urine pH 6.5 (5.0-8.0) Ur Specific [place] 1.020 (1.005-1.030) Urine Protein Negative (Negative) Urine Glucose (UA) Negative (Negative) Urine Ketones Negative (Negative) Urine Occult Blood Negative (Negative) Urine Nitrite Negative (Negative) Urine Bilirubin Negative (Negative) Urine Urobilinogen 0.2 (0.2-1.0) Ur Leukocyte Esterase 1+ H (Negative) Urine RBC Not seen (0-5) /hpf Urine WBC 0-5 (0-5) /hpf Ur Squamous Epith Cells 5-10 H (0-5) /hpf Urine Bacteria Not seen (FEW) /hpf Urine Mucus Not seen (FEW) /hpf Meds: Medications Generic Name Dose Route Start Last Admin Trade Name Freq PRN Reason Stop Dose Admin Sodium Chloride 10 ml 09/26/19 13:11 09/26/19 13:35 Saline Flush FLUSH 10 ml ASDIRECTED PRN Administration Keep Vein Open Discontinued Medications Generic Name Dose Route Start Last Admin Trade Name Freq PRN Reason Stop Dose Admin Al Hydroxide/Mg Hydroxide 30 0 ml 09/26/19 13:11 09/26/19 13:24 ml/ Lidocaine HCl 10 ml PO 09/26/19 13:12 40 ml ONETIME ONE Administration - Re-Assessments/Exams Free Text/Narrative Re-Assessment/Exam: 09/26/19 14:21 Chest x-ray interpreted by me in NAD Free Text/Narrative Re-Assessment/Exam: 09/26/19 16:09 Gallbladder sonogram shows "impression: #1 slightly prominent common bile duct at 8 mm. Etiology for this finding is not seen. MRI could be considered if further evaluation is clinically needed. #2 no gallstones or gallbladder wall thickening or seen. #3 no additional abnormalities seen on the right upper quadrant abdominal ultrasound." Free Text/Narrative Re-Assessment/Exam: 09/26/19 16:11 No evidence of acute cholecystitis at this time, patient has slightly prominent common bile duct on ultrasound, however, he has no elevation of her liver enzymes or lipase is possible that she has acalculous cholecystitis but this can be worked up as an outpatient will treat as GERD until then and have patient follow-up with her PCP Departure - Departure Time of Disposition: 16:37 Disposition: Home, Self-Care 01 Clinical Impression: Right upper quadrant pain GERD (gastroesophageal reflux disease) Qualifiers: Esophagitis presence: without esophagitis Qualified Code(s): K21.9 - Gastro- esophageal reflux disease without esophagitis - Discharge Information *PRESCRIPTION DRUG MONITORING PROGRAM REVIEWED*: Yes *COPY OF PRESCRIPTION DRUG MONITORING REPORT IN PATIENT NAIDA: No Instructions: Abdominal Pain, Adult, Gastroesophageal Reflux Disease, Adult, [id number] Referrals: Meredith Aly NP [Primary Care Provider] - Forms: ED Department Discharge Additional Instructions: Home, rest, return as needed for worsening condition, Tums as needed for pain - My Orders Last 24 Hours: My Active Orders 09/26/19 13:11 Sodium Chloride 0.9% [Saline Flush] 10 ml FLUSH ASDIRECTED PRN Saline Lock Insert [OM.PC] Stat EKG 12 Lead [EK] Stat 09/26/19 13:12 EKG Documentation Completion [RC] ASDIRECTED 09/26/19 14:34 CULTURE URINE [RM] Stat - Assessment/Plan Last 24 Hours: My Active Orders 09/26/19 13:11 Sodium Chloride 0.9% [Saline Flush] 10 ml FLUSH ASDIRECTED PRN Saline Lock Insert [OM.PC] Stat EKG 12 Lead [EK] Stat 09/26/19 13:12 EKG Documentation Completion [RC] ASDIRECTED 09/26/19 14:34 CULTURE URINE [RM] Stat
--- NOTE | 2019-09-26 14:52 | CR ---
Chest: Two views of the chest were obtained. Comparison: Prior chest x-ray of 05/30/19. Heart size and mediastinum are normal. Lungs are clear. Bony structures show diffuse disc space narrowing with the spine. Impression: 1. Nothing acute is seen on two-view chest x-ray. Diagnostic code #2
--- NOTE | 2019-09-26 16:06 | US ---
Limited abdominal ultrasound: Multiple real-time images of the upper right abdomen were obtained. Comparison: No prior right upper quadrant abdominal ultrasound exam. Findings: Common bile duct slightly prominent at 8 mm. Etiology is not identified. Gallbladder contains no shadowing gallstones. No gallbladder wall thickening is seen. Liver contains no focal abnormality. Pancreas is incompletely seen. Visualized portions of the pancreas are within normal limits. Right kidney shows no hydronephrosis or mass. Right kidney has a length of 9.6 cm. Portal vein shows normal hepatopedal flow. Impression: 1. Slightly prominent CBD at 8 mm. Etiology for this finding is not seen. MRI could be considered if further evaluation is clinically needed. 2. No gallstones or gallbladder wall thickening are seen. 3. No additional abnormality is seen on right upper quadrant abdominal ultrasound. Diagnostic code #3
== END 2019-09-26 16:46 | disposition home or self-care (01) ==
LOC: JD.ED 12:50
DX: K21.9 Gastro-esophageal reflux disease without esophagitis (principal); R10.11 Right upper quadrant pain; E78.00 Pure hypercholesterolemia, unspecified; I10 Essential (primary) hypertension; M19.90 Unspecified osteoarthritis, unspecified site; F41.9 Anxiety disorder, unspecified; F32.9 Major depressive disorder, single episode, unspecified; E03.9 Hypothyroidism, unspecified; Z90.710 Acquired absence of both cervix and uterus; Z88.1 Allergy status to other antibiotic agents; Z88.2 Allergy status to sulfonamides; Z88.8 Allergy status to other drugs, medicaments and biological substances; Z79.82 Long term (current) use of aspirin; Z79.899 Other long term (current) drug therapy
CPT/HCPCS: 36415; 71046; 76705; 80053; 81001; 83690; 84484; 85025; 87086; 87088; 93005; 99284; A9270; 93010

== ENCOUNTER 2019-10-31 14:39 | Emergency (ER) | payer SELFPAY ==
[2019-10-31 15:00] VITALS: BP 133/82; PULSE 70
[2019-10-31] MEDS ORDERED: Ketorolac 30 MG/ML SDV IVPUSH ONE (15:14)
[2019-10-31] MEDS ORDERED: HYDROmorphone 1 MG/ML Syringe IVPUSH ONE ×2 (15:15→18:41)
[2019-10-31] MEDS ORDERED: Metoclopramide 10 MG/2 ML SDV IVPUSH ONE (15:17)
[2019-10-31] MEDS ORDERED: carBAMazepine 100 MG Tab.Chew PO ONE (15:18)
[2019-10-31] MEDS ORDERED: Dexamethasone 10 MG/ML SDV IVPUSH ONE (15:18)
--- NOTE | 2019-10-31 15:20 | EDM.PDOC ---
ED HPI GENERAL MEDICAL PROBLEM - General Chief Complaint: Skin Complaint Stated Complaint: PAIN AND THROBBING IN LT SIDE OF FACE Time Seen by Provider: 10/31/19 15:14 Source of Information: Reports: Patient History Limitations: Reports: No Limitations - History of Present Illness INITIAL COMMENTS - FREE TEXT/NARRATIVE: 34-year-old female presents to the ED with acute onset of severe left hemifacial pain which is sharp stabbing lancinating. Started last evening and is becoming more frequent and more intense as the day has gone on. His pain starts anterior to her left ear and radiates towards her left eye particularly the inferior aspect left side of her nose and left maxillary sinus area. He pain is definitely neurogenic in origin. There is no associated rashes at this time to suggest shingles. Peers to be one branch of the trigeminal nerve that is inflamed. is taken her normal medicines for headache which have not helped. She is also on gabapentin 600 mg twice daily and 300 mg at bedtime. Chronic trigeminal neuralgia on the right side of her face. Onset: Gradual Onset Date: 11/06/19 Duration: Hour(s): (Wrist appreciated intermittent sharp stabbing pains left side of her face last night.), Getting Worse Location: Reports: Face (Hemifacial pain anterior to her left ear shooting towards her left eye left side of her nose and left maxillary sinus area. 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: Other (see below) Left Face/Facial Pain Score (Numeric/FACES): 8 - Related Data Allergies Allergy/AdvReac Type Severity Reaction Status Date / Time erythromycin base Allergy Other Verified 09/26/19 13:05 Sulfa (Sulfonamide Allergy Hives Verified 09/26/19 13:05 Antibiotics) sulfamethoxazole Allergy Hives Verified 09/26/19 13:05 [From Bactrim] trimethoprim [From Bactrim] Allergy Hives Verified 09/26/19 13:05 meloxicam AdvReac Tachycardia Verified 09/26/19 13:05 Home Meds: Home Meds Gabapentin [Neurontin] 300 mg PO 1700 03/09/14 [History] Zolpidem [Ambien] 10 mg PO BEDTIME 03/09/14 [History] Propranolol [Inderal LA] 160 mg PO DAILY 03/12/15 [History] Levothyroxine 75 mcg PO ACBREAKFAST 08/19/15 [History] Losartan [Cozaar] 25 mg PO DAILY 08/19/15 [History] DULoxetine [Cymbalta] 90 mg PO DAILY 09/18/16 [History] atorvaSTATin [Lipitor] 40 mg PO DAILY 09/18/16 [History] Aspirin/Acetaminophen/Caffeine [Headache Relief Gelcap] 1 tab PO Q8H PRN [History] Esomeprazole [NexIUM] 40 mg PO DAILY 06/17/18 [History] Gabapentin [Neurontin] 600 mg PO BID 06/17/18 [History] Orphenadrine [Norflex] 100 mg PO BID 06/17/18 [History] Metoclopramide [Reglan] 5 mg PO Q6H PRN 05/30/19 [History] Onabotulinumtoxina [Botox] 1 applic INJECT Q3M 08/29/19 [History] Polyethylene Glycol 3350 [MiraLAX] 1 packet PO DAILY 08/29/19 [History] Rizatriptan Benzoate [Rizatriptan] 10 mg PO DAILY PRN 08/29/19 [History] Maxalt 1 tab PO ASDIRECTED 10/31/19 [History] carBAMazepine [TEGretol] 100 mg PO ASDIRECTED #30 tab.chew 10/31/19 [Rx] dexAMETHasone [Dexamethasone] 4 mg PO Q8H #12 tablet 10/31/19 [Rx] oxyCODONE HCl/Acetaminophen [Percocet 5-325 mg Tablet] 1 - 2 each PO Q4H PRN # 20 tablet 10/31/19 [Rx] Past Medical History - Past Health History Medical/Surgical History: Denies Medical/Surgical History Cardiovascular History: Reports: High Cholesterol, Hypertension Gastrointestinal History: Reports: GERD, PUD, Other (See Below) Other Gastrointestinal History: chronic constipation Genitourinary History: Reports: Urinary Incontinence Other Genitourinary History: dysuria 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 History: uterus removed, x3 vag del Musculoskeletal History: Reports: Arthritis, Back Pain, Chronic, Fracture, Osteoarthritis Other Musculoskeletal History: multiple fx, herniated discs Neurological History: Reports: Headaches, Chronic, Seizure Psychiatric History: Reports: Anxiety, Depression Endocrine/Metabolic History: Reports: Hypothyroidism Hematologic History: Reports: Other (See Below) Other Hematologic History: x1 with hysterectomy - Past Surgical History HEENT Surgical History: Reports: Naso-Sinus Surgery, Tonsillectomy, Other (See Below) Other HEENT Surgeries/Procedures: wears glasses, multiple facial fractures GI Surgical History: Reports: Appendectomy Female Surgical History: Reports: Hysterectomy Neurological Surgical History: Reports: Lumbar Spine Musculoskeletal Surgical History: Reports: Joint Replacement, Knee Replacement, ORIF, Other (See Below) Other Musculoskeletal Surgeries/Procedures:: Biopsy to right knee Dermatological Surgical History: Reports: Skin Biopsy Social & Family History - Family History Family Medical History: Noncontributory - Tobacco Use Smoking Status *Q: Never Smoker - Caffeine Use Caffeine Use: Reports: Coffee - Living Situation & Occupation Living situation: Reports: , with Spouse Occupation: Employed ED ROS GENERAL - Review of Systems Review Of Systems: See Below Constitutional: Reports: Fatigue, Decreased Appetite (Pain kept her awake a bit up during the night.). Denies: Fever, Chills, Malaise HEENT: Reports: Nose Pain (Sharp lancinating pain towards the left side of her nose.). Denies: Ear Pain Respiratory: Reports: No Symptoms Cardiovascular: Reports: No Symptoms Endocrine: Reports: No Symptoms GI/Abdominal: Reports: No Symptoms : Reports: No Symptoms Musculoskeletal: Reports: No Symptoms Skin: Reports: No Symptoms Neurological: Reports: Paresthesia (Sharp stabbing lancinating neurogenic pain left trenton-face middle branch of the trigeminal nerve) Psychiatric: Reports: No Symptoms Hematologic/Lymphatic: Reports: No Symptoms Immunologic: Reports: No Symptoms ED EXAM, SKIN/RASH Exam: See Below Exam Limited By: No Limitations General Appearance: Alert, WD/WN, Moderate Distress (He is in obvious pain and has to keep her eye closed due to the sharp stabbing nature of the pain.) Eye Exam: Bilateral Eye: Normal Inspection Ears: Normal TMs Nose: Normal Inspection, Normal Mucosa, No Blood Throat/Mouth: Normal Inspection, Normal Lips, Normal Teeth, Normal Oropharynx Head: Atraumatic, Normocephalic Neck: Normal Inspection, Supple, Non-Tender. No: Lymphadenopathy (L), Lymphadenopathy (R) Respiratory/Chest: No Respiratory Distress, Lungs Clear, Normal Breath Sounds, No Accessory Muscle Use Course - Vital Signs Last Recorded V/S: Last Vital Signs Temp 36.0 C 10/31/19 14:58 Pulse 70 10/31/19 14:58 Resp 20 10/31/19 14:58 BP 133/82 10/31/19 14:58 Pulse Ox 98 10/31/19 14:58 - Orders/Labs/Meds Meds: Medications Discontinued Medications Generic Name Dose Route Start Last Admin Trade Name Abisai PRN Reason Stop Dose Admin Carbamazepine 100 mg 10/31/19 15:18 10/31/19 16:32 Tegretol PO 10/31/19 15:19 100 mg ONETIME ONE Administration Dexamethasone 10 mg 10/31/19 15:18 10/31/19 16:25 Dexamethasone IVPUSH 10/31/19 15:19 10 mg ONETIME ONE Administration Hydromorphone HCl 1 mg 10/31/19 15:15 10/31/19 16:24 Dilaudid IVPUSH 10/31/19 15:16 1 mg ONETIME ONE Administration Ketorolac Tromethamine 30 mg 10/31/19 15:14 10/31/19 16:23 Toradol IVPUSH 10/31/19 15:15 30 mg ONETIME ONE Administration Metoclopramide HCl 7.5 mg 10/31/19 15:17 10/31/19 16:19 Reglan IVPUSH 10/31/19 15:18 7.5 mg ONETIME ONE Administration - Radiology Interpretation Free Text/Narrative:: 54-year-old female presents the ED with sudden onset of severe lancinating pain left anterior trenton-face. Pain is currently awaiting from anterior to her left ear to her left eye and left side of her nose and over the maxillary sinus. The pain is sharp stabbing lancinating i.e. neurogenic in origin. Peers to be the middle branch of the trigeminal nerve that is affected. No rash to suggest shingles at this time. Patient will be given intravenous Dilaudid 1 mg with Reglan 7.5 mg and Toradol 30 mg for pain relief. I'm also going to give her dexamethasone 10 mg IV. Given Tegretol 100 mg by mouth. The plan will be to discharge her on pain medication to take as needed and Tegretol 100 mg twice daily for 3 days and then increase dosage as tolerated. Monitor for development of rash to indicate shingles development. - Re-Assessments/Exams Free Text/Narrative Re-Assessment/Exam: 10/31/19 17:14 patient states that the lancinating sharp stabbing pain is much improved. She feels achiness in her left temporal and left trenton-face particularly lateral to her left eye. Plan will be to discharge her on Tegretol 100 mg twice a day for the next 3 days and then gradually increase by one tablet every 3 days as necessary to control pain. Percocet tabs 5/3/25 milligrams one or 2 every 4-6 hours for pain relief while at home. Start dexamethasone 4 mg twice daily for the next 3 days to reduce inflammation. If she sees any signs of facial rash. Follow-up in 7 days time with personal care physician if pain persists. Departure - Departure Time of Disposition: 17:15 Disposition: Home, Self-Care 01 Condition: Fair Clinical Impression: Trigeminal neuralgia of left side of face - Discharge Information *PRESCRIPTION DRUG MONITORING PROGRAM REVIEWED*: Not Applicable *COPY OF PRESCRIPTION DRUG MONITORING REPORT IN PATIENT NAIDA: Not Applicable Prescriptions: carBAMazepine [TEGretol] 100 mg PO ASDIRECTED #30 tab.chew dexAMETHasone [Dexamethasone] 4 mg PO Q8H #12 tablet oxyCODONE HCl/Acetaminophen [Percocet 5-325 mg Tablet] 1 - 2 each PO Q4H PRN # 20 tablet PRN Reason: pain relief. Referrals: Meredith Aly NP [Primary Care Provider] - Forms: ED Department Discharge Additional Instructions: Evaluation the emergency room today in regards to development of severe lancinating shooting pain in the left side of your face which is coming from the one of the branches of the trigeminal nerve. This is called trigeminal neuralgia. You're treated in the ED with intravenous fluids and medications dexamethasone 10 mg and Tegretol 100 mg by mouth as well as 1 mg of Dilaudid IV with Reglan 7.5 mg IV. Been reduced in the lancinating component of the pain has been reduced. Treatment at home is Tegretol 100 mg at bedtime tonight. Pain medication Percocet 5/325 mg strength one or 2 tablets every 4 hours as needed for pain relief. Will need to start dexamethasone 4 mg 3 times daily tomorrow and continue this for 4 days or relieving inflammation of the nerve. Tegretol 100 mg twice daily morning and bedtime for the next 3 days and then increase by one tablet a day every 3 days as needed until the pain comes under control. Watch out for any rashes that may develop in the left side of the face that would indicate development of shingles. This would mandate immediate return to medical care either at the clinic or in the ED. Sepsis Event Note - Evaluation Sepsis Screening Result: No Definite Risk - Focused Exam Vital Signs: Vital Signs Temp Pulse Resp BP Pulse Ox 10/31/19 14:58 36.0 C 70 20 133/82 98 Date Exam was Performed: 10/31/19 Time Exam was Performed: 17:14
== END 2019-10-31 18:57 | disposition home or self-care (01) ==
LOC: JD.ED 14:39
DX: G50.0 Trigeminal neuralgia (principal); E78.00 Pure hypercholesterolemia, unspecified; I10 Essential (primary) hypertension; K21.9 Gastro-esophageal reflux disease without esophagitis; F41.9 Anxiety disorder, unspecified; F32.9 Major depressive disorder, single episode, unspecified; E03.9 Hypothyroidism, unspecified; Z88.1 Allergy status to other antibiotic agents; Z88.2 Allergy status to sulfonamides; Z88.6 Allergy status to analgesic agent; Z79.82 Long term (current) use of aspirin; Z79.890 Hormone replacement therapy; Z79.899 Other long term (current) drug therapy
CPT/HCPCS: 96374; 96375; 96376; 99283; A9270; J1100; J1170; J1885; J2765

== ENCOUNTER 2020-04-10 17:26 | Emergency (ER) | payer OTHER ==
[2020-04-10 17:38] VITALS: BP 155/96; PULSE 68
[2020-04-10] MEDS ORDERED: diphenhydrAMINE 50 MG/ML SDV IVPUSH ONE (17:50)
[2020-04-10] MEDS ORDERED: Ketorolac 30 MG/ML SDV IVPUSH ONE (17:50)
[2020-04-10] MEDS ORDERED: Sodium Chloride 0.9% 1,000 ML IV ONE (17:50)
[2020-04-10] MEDS ORDERED: Metoclopramide 10 MG/2 ML SDV IVPUSH ONE (17:50)
[2020-04-10] MEDS ORDERED: Sodium Chloride 0.9% 10 ML Syringe FLUSH PRN (17:50)
--- NOTE | 2020-04-10 17:56 | EDM.PDOC ---
ED HPI GENERAL MEDICAL PROBLEM - General Chief Complaint: Headache Stated Complaint: HEADACHE Time Seen by Provider: 04/10/20 17:35 Source of Information: Reports: Patient, RN Notes Reviewed History Limitations: Reports: No Limitations - History of Present Illness INITIAL COMMENTS - FREE TEXT/NARRATIVE: Patient is a 55-year-old female who presents to the ED with a migraine headache. Patient does have a history of migraines, and states this is typical for her migraines, but has lasted longer than normal. Patient notes that her headache has been pretty bad for 2 weeks now. When she typically gets migraines , it starts in her eye sockets and pretty well stays there. Patient states she does not usually get trigger point therapy and Botox injections, and last had her trigger point therapy last Thursday. Patient did take 2 Aleve at 4 in the morning, and 2 Excedrin Migraine at 11 AM, with little relief. Patient states that she does have Reglan and Maxalt at home, but is not to take this more than 2 times a week and states that she already took this yester and Thursday. She does note some ongoing TMJ issues, for which she is seeing orthodontics for bone grafts and or braces, so she thinks there may be a combination of a tension headache with this as well. Patient states she did have some visual field flashes but no blurred vision or double vision, was having some nausea with this, but denies any other sick-like issues, fever/chills, cough/shortness of breath/chest pain. Headache Pain Score (Numeric/FACES): 8 - Related Data Allergies Allergy/AdvReac Type Severity Reaction Status Date / Time erythromycin base Allergy Other Verified 09/26/19 13:05 Sulfa (Sulfonamide Allergy Hives Verified 09/26/19 13:05 Antibiotics) sulfamethoxazole Allergy Hives Verified 09/26/19 13:05 [From Bactrim] trimethoprim [From Bactrim] Allergy Hives Verified 09/26/19 13:05 meloxicam AdvReac Tachycardia Verified 09/26/19 13:05 Home Meds: Home Meds Gabapentin [Neurontin] 300 mg PO 1700 03/09/14 [History] Zolpidem [Ambien] 10 mg PO BEDTIME 03/09/14 [History] Propranolol [Inderal LA] 160 mg PO DAILY 03/12/15 [History] Levothyroxine 75 mcg PO ACBREAKFAST 08/19/15 [History] Losartan [Cozaar] 25 mg PO DAILY 08/19/15 [History] DULoxetine [Cymbalta] 90 mg PO DAILY 09/18/16 [History] atorvaSTATin [Lipitor] 40 mg PO DAILY 09/18/16 [History] Aspirin/Acetaminophen/Caffeine [Headache Relief Gelcap] 1 tab PO Q8H PRN [History] Esomeprazole [NexIUM] 40 mg PO DAILY 06/17/18 [History] Gabapentin [Neurontin] 600 mg PO BID 06/17/18 [History] Orphenadrine [Norflex] 100 mg PO BID 06/17/18 [History] Metoclopramide [Reglan] 5 mg PO Q6H PRN 05/30/19 [History] Onabotulinumtoxina [Botox] 1 applic INJECT Q3M 08/29/19 [History] Rizatriptan Benzoate [Rizatriptan] 10 mg PO DAILY PRN 08/29/19 [History] polyethylene glycoL 3350 [MiraLAX] 1 packet PO DAILY 08/29/19 [History] dexAMETHasone [Dexamethasone] 4 mg PO Q8H #12 tablet 10/31/19 [Rx] Loratadine 10 mg PO DAILY PRN 04/10/20 [History] Magnesium 30 mg PO DAILY 04/10/20 [History] Naproxen Sodium 220 mg PO DAILY 04/10/20 [History] Ubidecarenone [Co Q-10] 10 mg PO BEDTIME 04/10/20 [History] Past Medical History HEENT History: Reports: Other (See Below) (TMJ issues, ongoing) Cardiovascular History: Reports: High Cholesterol, Hypertension Gastrointestinal History: Reports: GERD, PUD, Other (See Below) Other Gastrointestinal History: chronic constipation Genitourinary History: Reports: Urinary Incontinence Other Genitourinary History: dysuria 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: uterus removed, x3 vag del Musculoskeletal History: Reports: Arthritis, Back Pain, Chronic, Fracture, Osteoarthritis Other Musculoskeletal History: multiple fx, herniated discs Neurological History: Reports: Headaches, Chronic, Seizure Psychiatric History: Reports: Anxiety, Depression Endocrine/Metabolic History: Reports: Hypothyroidism - Past Surgical History HEENT Surgical History: Reports: Naso-Sinus Surgery, Tonsillectomy, Other (See Below) Other HEENT Surgeries/Procedures: wears glasses, multiple facial fractures GI Surgical History: Reports: Appendectomy Female Surgical History: Reports: Hysterectomy Neurological Surgical History: Reports: Lumbar Spine Musculoskeletal Surgical History: Reports: Joint Replacement, Knee Replacement, ORIF, Other (See Below) Other Musculoskeletal Surgeries/Procedures:: Biopsy to right knee Dermatological Surgical History: Reports: Skin Biopsy Social & Family History - Family History Family Medical History: Noncontributory - Tobacco Use Smoking Status *Q: Never Smoker Second Hand Smoke Exposure: No - Caffeine Use Caffeine Use: Reports: Coffee - Living Situation & Occupation Living situation: Reports: , with Spouse Occupation: Employed ED ROS GENERAL - Review of Systems Review Of Systems: Comprehensive ROS is negative, except as noted in HPI. - Physical Exam Exam: See Below Exam Limited By: No Limitations General Appearance: Alert, WD/WN, No Apparent Distress Eye Exam: Bilateral Eye: EOMI, Normal Inspection, PERRL Ears: Normal External Exam Nose: Normal Inspection Throat/Mouth: Normal Inspection, Normal Lips, Normal Teeth, Normal Gums, Normal Oropharynx, Normal Voice, No Airway Compromise Head Exam: Atraumatic, Normocephalic Neck: Normal Inspection Respiratory/Chest: No Respiratory Distress, Lungs Clear, Normal Breath Sounds, No Accessory Muscle Use, Chest Non-Tender Cardiovascular: Normal Peripheral Pulses, Regular Rate, Rhythm, No Murmur Neuro Exam (Abbreviated): Alert, Oriented, Normal Cognition, No Motor/Sensory Deficits Extremities: Normal Inspection, Normal Capillary Refill Psychiatric: Normal Affect, Normal Mood Skin Exam: Warm, Dry, Intact, Normal Color, No Rash Course - Vital Signs Last Recorded V/S: Last Vital Signs Temp 98.6 F 04/10/20 17:34 Pulse 68 04/10/20 17:34 Resp 16 04/10/20 17:34 BP 155/96 H 04/10/20 17:34 Pulse Ox 95 04/10/20 17:34 - Orders/Labs/Meds Orders: Active Orders 24 hr Category Date Time Status Peripheral IV Care [RC] . DIRECTED Care 04/10/20 17:50 Ordered Sodium Chloride 0.9% [Saline Flush] Med 04/10/20 17:50 Active 10 ml FLUSH ASDIRECTED PRN Peripheral IV Insertion Adult [OM.PC] Routine Oth 04/10/20 17:50 Ordered Medication Orders Sodium Chloride (Saline Flush) 10 ml FLUSH ASDIRECTED PRN PRN Reason: Keep Vein Open Last Admin: 04/10/20 18:00 Dose: 10 ml Meds: Medications Generic Name Dose Route Start Last Admin Trade Name Frekia PRN Reason Stop Dose Admin Sodium Chloride 10 ml 04/10/20 17:50 04/10/20 18:00 Saline Flush FLUSH 10 ml ASDIRECTED PRN Administration Keep Vein Open Discontinued Medications Generic Name Dose Route Start Last Admin Trade Name Freq PRN Reason Stop Dose Admin Acetaminophen/Butalbital/Caffeine 1 tab 04/10/20 19:08 04/10/20 19:26 Fioricet 325-50-40 Mg PO 04/10/20 19:09 1 tab ONETIME ONE Administration Diphenhydramine HCl 25 mg 04/10/20 17:50 04/10/20 18:01 Benadryl IVPUSH 04/10/20 17:51 25 mg ONETIME ONE Administration Sodium Chloride 1,000 mls @ 999 mls/hr 04/10/20 17:50 04/10/20 18:01 Normal Saline IV 04/10/20 18:50 999 mls/hr ASDIRECTED ONE Administration Ketorolac Tromethamine 30 mg 04/10/20 17:50 04/10/20 18:00 Toradol IVPUSH 04/10/20 17:51 30 mg ONETIME ONE Administration Metoclopramide HCl 10 mg 04/10/20 17:50 04/10/20 17:59 Reglan IVPUSH 04/10/20 17:51 10 mg ONETIME ONE Administration - Re-Assessments/Exams Free Text/Narrative Re-Assessment/Exam: 04/10/20 17:59 Patient presents to the ED for evaluation of her ongoing migraine headache. Have ordered IV to be placed with fluids, 30 mg Toradol, 10 mg Reglan and 25 mg Benadryl for initial management. 04/10/20 19:10 Patient states that the headache is not improved much at all, I will try Fioricet with her at this time as she states she remembers having luck with this in the past. 04/10/20 20:01 Patient was reassessed at bedside, states she has had some good relief of her headache with Fioricet, and is ready to go home at this time. Will discharge home with general recommendations. Departure - Departure Time of Disposition: 20:01 Disposition: Home, Self-Care 01 Condition: Good Clinical Impression: Migraine Qualifiers: Migraine type: unspecified Status migrainosus presence: without status migrainosus Intractability: not intractable Qualified Code(s): G43.909 - Migraine, unspecified, not intractable, without status migrainosus - Discharge Information *PRESCRIPTION DRUG MONITORING PROGRAM REVIEWED*: No *COPY OF PRESCRIPTION DRUG MONITORING REPORT IN PATIENT NAIDA: No Instructions: Migraine Headache, [id number] Referrals: Meredith Aly NP [Primary Care Provider] - Forms: ED Department Discharge Additional Instructions: You were evaluated in the ED for your headache. You were given a combination of medications and IV fluid for management. This did seem to provide you pretty good relief of your symptoms. Recommend that you go home and rest in a quiet, darkened room. Try also to keep well hydrated. Please return to the ED if your symptoms should change or worsen. Sepsis Event Note - Evaluation Sepsis Screening Result: No Definite Risk - Focused Exam Vital Signs: Vital Signs Temp Pulse Resp BP Pulse Ox 04/10/20 17:34 98.6 F 68 16 155/96 H 95 Date Exam was Performed: 04/10/20 Time Exam was Performed: 20:01 - My Orders Last 24 Hours: My Active Orders 04/10/20 17:50 Peripheral IV Care [RC] . DIRECTED Sodium Chloride 0.9% [Saline Flush] 10 ml FLUSH ASDIRECTED PRN Peripheral IV Insertion Adult [OM.PC] Routine - Assessment/Plan Last 24 Hours: My Active Orders 04/10/20 17:50 Peripheral IV Care [RC] . DIRECTED Sodium Chloride 0.9% [Saline Flush] 10 ml FLUSH ASDIRECTED PRN Peripheral IV Insertion Adult [OM.PC] Routine
[2020-04-10] MEDS ORDERED: Acetaminophen/Butalbital/Caffeine 325-50-40 MG Tab PO ONE (19:08)
== END 2020-04-10 20:16 | disposition home or self-care (01) ==
LOC: JD.ED 17:26
DX: G43.909 Migraine, unspecified, not intractable, without status migrainosus (principal); E78.00 Pure hypercholesterolemia, unspecified; I10 Essential (primary) hypertension; K21.9 Gastro-esophageal reflux disease without esophagitis; F41.9 Anxiety disorder, unspecified; F32.9 Major depressive disorder, single episode, unspecified; E03.9 Hypothyroidism, unspecified; M19.90 Unspecified osteoarthritis, unspecified site; Z90.89 Acquired absence of other organs; Z88.2 Allergy status to sulfonamides; Z88.8 Allergy status to other drugs, medicaments and biological substances; Z79.82 Long term (current) use of aspirin; Z79.899 Other long term (current) drug therapy; Z90.710 Acquired absence of both cervix and uterus
CPT/HCPCS: 96374; 96375; 99283; A9270; J1200; J1885; J2765; J7030

== ENCOUNTER 2020-10-22 18:54 | Emergency (ER) | payer OTHER ==
[2020-10-22] MEDS ORDERED: Sodium Chloride 0.9% 10 ML Syringe FLUSH PRN (19:17)
[2020-10-22] MEDS ORDERED: EPINEPHrine 1:10,000 1 MG/10 ML Syringe IM PRN (19:19)
[2020-10-22] MEDS ORDERED: methylPREDNISolone Sodium Succinate 125 MG/2 ML SDV IVPUSH PRN (19:19)
[2020-10-22] MEDS ORDERED: diphenhydrAMINE 50 MG/ML SDV IVPUSH PRN (19:19)
[2020-10-22] MEDS ORDERED: Famotidine 20 MG/2 ML SDV IVPUSH PRN (19:19)
[2020-10-22] MEDS ORDERED: Ibuprofen 600 MG Tab PO ONE (19:23)
[2020-10-22] MEDS ORDERED: Sodium Chloride 0.9% 10 ML Syringe FLUSH SCH (19:30)
--- NOTE | 2020-10-22 19:34 | EDM.PDOC ---
<Aung Harden - Last Filed: 10/22/20 22:34> ED HPI GENERAL MEDICAL PROBLEM - General Chief Complaint: Respiratory Problem Stated Complaint: COVID+ Time Seen by Provider: 10/22/20 19:05 - Related Data Allergies Allergy/AdvReac Type Severity Reaction Status Date / Time erythromycin base Allergy Other Verified 10/22/20 19:07 Sulfa (Sulfonamide Allergy Hives Verified 10/22/20 19:07 Antibiotics) sulfamethoxazole Allergy Hives Verified 10/22/20 19:07 [From Bactrim] trimethoprim [From Bactrim] Allergy Hives Verified 10/22/20 19:07 meloxicam AdvReac Tachycardia Verified 10/22/20 19:07 Home Meds: Home Meds Gabapentin [Neurontin] 300 mg PO 1700 03/09/14 [History] Zolpidem [Ambien] 10 mg PO BEDTIME 03/09/14 [History] Propranolol [Inderal LA] 160 mg PO DAILY 03/12/15 [History] Levothyroxine 75 mcg PO ACBREAKFAST 08/19/15 [History] Losartan [Cozaar] 25 mg PO DAILY 08/19/15 [History] DULoxetine [Cymbalta] 90 mg PO DAILY 09/18/16 [History] atorvaSTATin [Lipitor] 80 mg PO DAILY 09/18/16 [History] Aspirin/Acetaminophen/Caffeine [Headache Relief Gelcap] 1 tab PO Q8H PRN 06/17/18 [History] Esomeprazole [NexIUM] 40 mg PO DAILY 06/17/18 [History] Gabapentin [Neurontin] 600 mg PO BID 06/17/18 [History] Orphenadrine [Norflex] 100 mg PO BID 06/17/18 [History] Metoclopramide [Reglan] 5 mg PO Q6H PRN 05/30/19 [History] Onabotulinumtoxina [Botox] 1 applic INJECT Q3M 08/29/19 [History] Rizatriptan Benzoate [Rizatriptan] 10 mg PO DAILY PRN 08/29/19 [History] Loratadine 10 mg PO DAILY PRN 04/10/20 [History] Naproxen Sodium 220 mg PO DAILY 04/10/20 [History] Ubidecarenone [Co Q-10] 10 mg PO BEDTIME 04/10/20 [History] Course - Re-Assessments/Exams Free Text/Narrative Re-Assessment/Exam: 10/22/20 22:34 The patient's CMP is remarkable for blood glucose mildly depressed at 70, and an alkaline phosphatase slightly elevated at 122, with the remainder of her CMP being unremarkable. Her CRP is elevated at 8.8. Notified by Nikky ADAMS that 1 hour has passed since the bamlanivimab has finished infusing, and that the patient has not developed any adverse reaction. I will discharge her home. Departure - Departure Time of Disposition: 22:36 Disposition: Home, Self-Care 01 Condition: Good Clinical Impression: COVID-19, Orthostasis - Discharge Information *PRESCRIPTION DRUG MONITORING PROGRAM REVIEWED*: Not Applicable *COPY OF PRESCRIPTION DRUG MONITORING REPORT IN PATIENT NAIDA: Not Applicable Instructions: COVID-19 Frequently Asked Questions, COVID-19, Orthostatic Hypotension, Prevent the Spread of COVID-19 if You Are Sick - [facility] Referrals: Meredith Aly NP [Primary Care Provider] - Forms: ED Department Discharge Additional Instructions: You were seen in the emergency room for symptoms of fatigue, body aches, intermittent headaches, some watery diarrhea, and a slight cough in the setting of being diagnosed with COVID-19 7 days ago. Work-up in the ER included positional blood pressure checks and several blood tests. Your blood pressure dropped excessively between lying and standing, condition known as orthostasis, indicating that you were dry. You were given IV fluid in the ER. You were given the Emergency Use Authorization (EUA) medicine bamlanivimab in the ER. This will hopefully decrease the likelihood of your COVID-19 symptoms getting worse. We recommend that you stay adequately hydrated. Continue your usual medications. It is very important that you continue to quarantine until you test negative for the virus. Follow-up with your PCP, Meredith Aly NP, as needed. If any other problems, please do not hesitate to return to the ER. <Denisse Farley - Last Filed: 10/24/20 11:19> ED HPI GENERAL MEDICAL PROBLEM - General Source of Information: Reports: Patient, RN Notes Reviewed History Limitations: Reports: No Limitations - History of Present Illness INITIAL COMMENTS - FREE TEXT/NARRATIVE: Patient is a 55-year-old female presenting to the emergency department with complaints of fatigue, body aches, and intermittent headaches. She was diagnosed Covid +7 days ago and symptoms began 1 day prior to her testing. She has been afebrile throughout the course of her illness. She has had fatigue, body aches, headaches, and a few days of diarrhea which has since resolved. She is concerned that she could be dehydrated. She has had a very mild occasional cough with no significant chest pain or shortness of breath. She has been using [id number] ibuprofen intermittently, but her last dose was at 7:00 this morning. Signs in triage were stable. Temperature 96.9, pulse 67, respiratory rate 16, blood pressure 128/81. Oxygen saturation has been 97 to 100% on room air since arrival. 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, x3 vag del Musculoskeletal History: Reports: Arthritis, Back Pain, Chronic, Fracture, Osteoarthritis Other Musculoskeletal History: multiple fx, herniated discs Neurological History: Reports: Headaches, Chronic, Seizure Psychiatric History: Reports: Anxiety, Depression Endocrine/Metabolic History: Reports: Hypothyroidism Hematologic History: Reports: Other (See Below) Other Hematologic History: x1 with hysterectomy - Infectious Disease History Infectious Disease History: Reports: Novel Coronavirus - Past Surgical History HEENT Surgical History: Reports: Naso-Sinus Surgery, Tonsillectomy, Other (See Below) Other HEENT Surgeries/Procedures: wears glasses, multiple facial fractures Cardiovascular Surgical History: Reports: None GI Surgical History: Reports: Appendectomy Female Surgical History: Reports: Hysterectomy Endocrine Surgical History: Reports: None Neurological Surgical History: Reports: Lumbar Spine Musculoskeletal Surgical History: Reports: Joint Replacement, Knee Replacement, ORIF, Other (See Below) Other Musculoskeletal Surgeries/Procedures:: Biopsy to right knee Dermatological Surgical History: Reports: Skin Biopsy Social & Family History - Family History Family Medical History: No Pertinent Family History - Tobacco Use Tobacco Use Status *Q: Never Tobacco User - Caffeine Use Caffeine Use: Reports: Soda - Recreational Drug Use Recreational Drug Use: No - Living Situation & Occupation Living situation: Reports: , with Spouse Occupation: Employed ED ROS GENERAL - Review of Systems Review Of Systems: See Below Constitutional: Reports: Fatigue. Denies: Fever, Chills HEENT: Reports: No Symptoms. Denies: Rhinitis, Sinus Problem, Throat Pain Respiratory: Reports: Cough (Mild, occasional). Denies: Shortness of Breath, Wheezing, Pleuritic Chest Pain Cardiovascular: Reports: No Symptoms. Denies: Dyspnea on Exertion, Lightheadedness, Syncope Endocrine: Reports: No Symptoms GI/Abdominal: Reports: Diarrhea. Denies: Abdominal Pain, Nausea, Vomiting : Reports: No Symptoms Musculoskeletal: Reports: Muscle Pain (Generalized body aches) Skin: Reports: No Symptoms Neurological: Reports: Headache. Denies: Confusion, Dizziness Psychiatric: Reports: No Symptoms Hematologic/Lymphatic: Reports: No Symptoms Immunologic: Reports: No Symptoms ED EXAM, GENERAL - Physical Exam Exam: See Below Exam Limited By: No Limitations General Appearance: Alert, WD/WN, No Apparent Distress Eye Exam: Bilateral Eye: PERRL Respiratory/Chest: No Respiratory Distress, Lungs Clear, Normal Breath Sounds, No Accessory Muscle Use, Chest Non-Tender Cardiovascular: Normal Peripheral Pulses, Regular Rate, Rhythm, No Edema, No Gallop, No JVD, No Murmur, No Rub GI/Abdominal: Normal Bowel Sounds, Soft, Non-Tender, No Organomegaly, No Distention, No Abnormal Bruit, No Mass Neurological: Alert, Oriented, CN II-XII Intact, Normal Cognition, Normal Gait, Normal Reflexes, No Motor/Sensory Deficits Psychiatric: Normal Affect, Normal Mood Skin Exam: Warm, Dry, Intact, Normal Color, No Rash Course - Vital Signs Last Recorded V/S: Last Vital Signs Temp 98.7 F 10/22/20 19:20 Pulse 80 10/22/20 23:11 Resp 16 10/22/20 23:11 BP 120/78 10/22/20 23:11 Pulse Ox 97 10/22/20 23:11 Orthostatic Blood Pressure [ 93/71 Standing] Orthostatic Blood Pressure [ 100/64 Sitting] Orthostatic Blood Pressure [ 119/64 Supine] - Orders/Labs/Meds Labs: Laboratory Tests 10/22/20 10/22/20 10/22/20 Range/Units 20:10 20:10 20:10 WBC 5.38 (3.98-10.04) K/mm3 RBC 4.41 (3.98-5.22) M/mm3 Hgb 12.6 (11.2-15.7) gm/dl Hct 39.8 (34.1-44.9) % MCV 90.2 (79.4-94.8) fl MCH 28.6 (25.6-32.2) pg MCHC 31.7 L (32.2-35.5) g/dl RDW Std Deviation 44.5 (36.4-46.3) fL Plt Count 202 (182-369) K/mm3 MPV 10.4 (9.4-12.3) fl Neut % (Auto) 59.8 (34.0-71.1) % Lymph % (Auto) 27.9 (19.3-51.7) % Roberts % (Auto) 9.5 (4.7-12.5) % Eos % (Auto) 2.0 (0.7-5.8) Baso % (Auto) 0.4 (0.1-1.2) % Neut # (Auto) 3.22 (1.56-6.13) K/mm3 Lymph # (Auto) 1.50 (1.18-3.74) K/mm3 Roberts # (Auto) 0.51 H (0.24-0.36) K/mm3 Eos # (Auto) 0.11 (0.04-0.36) K/mm3 Baso # (Auto) 0.02 (0.01-0.08) K/mm3 Sodium 138 (136-145) mEq/L Potassium 3.8 (3.5-5.1) mEq/L Chloride 100 (98-107) mEq/L Carbon Dioxide 30 (21-32) mEq/L Anion Gap 11.8 (5-15) BUN 10 (7-18) mg/dL Creatinine 0.9 (0.55-1.02) mg/dL Est Cr Clr Drug Dosing 59.55 mL/min Estimated GFR (MDRD) > 60 (>60) mL/min BUN/Creatinine Ratio 11.1 L (14-18) Glucose 70 L (74-106) mg/dL Calcium 8.8 (8.5-10.1) mg/dL Magnesium 2.1 (1.8-2.4) mg/dl Total Bilirubin 0.3 (0.2-1.0) mg/dL AST 24 (15-37) U/L ALT 28 (14-59) U/L Alkaline Phosphatase 122 H (46-116) U/L C-Reactive Protein 8.8 H* (<1.0) mg/dL Total Protein 6.9 (6.4-8.2) g/dl Albumin 3.3 L (3.4-5.0) g/dl Globulin 3.6 gm/dL Albumin/Globulin Ratio 0.9 L (1-2) Meds: Medications Discontinued Medications Generic Name Dose Route Start Last Admin Trade Name Freq PRN Reason Stop Dose Admin Diphenhydramine HCl 50 mg 10/22/20 19:19 Benadryl IVPUSH ONETIME PRN hypersensitivity reaction Epinephrine HCl 0.3 mg 10/22/20 19:19 Epinephrine 1:10,000 IM ONETIME PRN hypersensitivity reaction Famotidine 20 mg 10/22/20 19:19 Pepcid IVPUSH ONETIME PRN hypersensitivity reaction Bamlanivimab 700 mg/ Sodium 270 mls @ 270 mls/hr 10/22/20 19:19 10/22/20 20:13 Chloride IV 10/22/20 19:20 270 mls/hr ONETIME ONE Administration Protocol Sodium Chloride 1,000 mls @ 999 mls/hr 10/22/20 20:39 10/22/20 21:31 Normal Saline IV 10/22/20 21:39 999 mls/hr NOW STA Administration Ibuprofen 600 mg 10/22/20 19:23 10/22/20 20:22 Motrin PO 10/22/20 19:24 600 mg ONETIME ONE Administration Methylprednisolone Sodium Succinate 125 mg 10/22/20 19:19 Solu-Medrol IVPUSH ONETIME PRN hypersensitivity reaction Sodium Chloride 10 ml 10/22/20 19:17 Saline Flush FLUSH ASDIRECTED PRN Keep Vein Open Sodium Chloride 30 ml 10/22/20 19:30 Saline Flush FLUSH ASDIRECTED JAN - Re-Assessments/Exams Free Text/Narrative Re-Assessment/Exam: Patient is a 55-year-old female presenting to the emergency part with complaints of fatigue, body aches, intermittent headaches. She is concerned that she may be dehydrated as she had diarrhea a few days ago. She has noted to be Covid positive with a diagnosis 1 week ago today. Symptoms started 1 day prior to nathaniel ting. She is had a minimal cough and denies any shortness of breath. Oxygen saturation has been 97 to 100% on room air. I have ordered CBC, CMP, CRP to look for electrolyte abnormalities or signs of dehydration. Also ordered orthostatic vital signs. Chest x-ray is not indicated as her oxygen saturations are normal, she denies any shortness of breath, and lung sounds are clear to auscultation I spoke with the patient to provide information about bamlanivimab treatment I offered her the ``Patient and Caregiver EUA Bamlanivimad Fact Sheet to read and review I stated the drug has been approved by an emergency use authorization (EUA) process and has not fully been FDA reviewed or approved The patient meets the EUA requirements I discussed there are other potential treatment options that are currently not FDA approved to treat COVID-19. Offered opportunity to ask questions and all questions were answered Patient voiced understanding and agreed to proceed with treatment 10/22/20 20:40 Patient is noted to be orthostatic. Blood pressure went from 119/64 lying to 93/70 when standing. I ordered a 1 L bolus of normal saline. CBC thus far is normal. CMP and CRP results are pending. Case discussed with Dr. Fina MD. He will assume care and disposition of the patient at end of shift. Sepsis Event Note (ED) - Evaluation Sepsis Screening Result: No Definite Risk
[2020-10-22] MEDS ORDERED: Sodium Chloride 0.9% 1,000 ML IV STA (20:39)
[2020-10-22 23:12] VITALS: BP 120/78; PULSE 80
== END 2020-10-22 22:50 | disposition home or self-care (01) ==
LOC: JD.ED 18:54
DX: U07.1 COVID-19 (principal); E78.00 Pure hypercholesterolemia, unspecified; I10 Essential (primary) hypertension; K21.9 Gastro-esophageal reflux disease without esophagitis; M19.90 Unspecified osteoarthritis, unspecified site; F41.9 Anxiety disorder, unspecified; F32.9 Major depressive disorder, single episode, unspecified; E03.9 Hypothyroidism, unspecified; Z88.1 Allergy status to other antibiotic agents; Z88.2 Allergy status to sulfonamides; Z88.8 Allergy status to other drugs, medicaments and biological substances; Z79.82 Long term (current) use of aspirin; Z79.899 Other long term (current) drug therapy
CPT/HCPCS: 36415; 80053; 83735; 85025; 86140; 96365; 99283-25; 99284; A9270-GY; J7030; J7050

== ENCOUNTER 2020-11-17 15:55 | Emergency (ER) | payer OTHER ==
[2020-11-17 16:19] VITALS: BP 170/96; PULSE 69
[2020-11-17] MEDS ORDERED: diphenhydrAMINE 50 MG/ML SDV IVPUSH ONE (16:24)
[2020-11-17] MEDS ORDERED: Sodium Chloride 0.9% 10 ML Syringe FLUSH PRN (16:24)
[2020-11-17] MEDS ORDERED: Ketorolac 30 MG/ML SDV IVPUSH ONE (16:24)
[2020-11-17] MEDS ORDERED: Sodium Chloride 0.9% 1,000 ML IV ONE (16:24)
[2020-11-17] MEDS ORDERED: HYDROmorphone 0.5 MG/0.5 ML Syringe IVPUSH ONE ×2 (16:35→17:41)
--- NOTE | 2020-11-17 16:38 | EDM.PDOC ---
ED HPI GENERAL MEDICAL PROBLEM - General Chief Complaint: Headache Stated Complaint: HEADACHE Time Seen by Provider: 11/17/20 16:18 Source of Information: Reports: Patient, RN Notes Reviewed History Limitations: Reports: No Limitations - History of Present Illness INITIAL COMMENTS - FREE TEXT/NARRATIVE: Patient is a 55-year-old female who presents to the ED for her ongoing headache. Patient does have a history of migraines, and states she has had a headache for the last 3 days, she notes she has been under an increasing amount of stress due to recent news that her daughter got for extensive cancer, and other life situations. Patient notes that she is nauseous, having photophobia which is common for her migraines and notes that the pain is behind her eyes sockets. She has taken Maxalt, Reglan, yesterday and today, last dose was around 6 AM. She has tried ibuprofen for management of well and just does not seem to be getting much better. She does have a history of COVID-19 on October 15. Other than that she has been feeling well no fevers or chills, cough/shortness of breath, nausea/vomiting/diarrhea. Patient states that she also gets Botox and trigger point injections, so they stagger out every 6 weeks. 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: NSAIDS, Other (see below) Other 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: maxalt adn reglan 0600, excedrin 1100, 1500 800 mg ibprufen - Related Data Allergies Allergy/AdvReac Type Severity Reaction Status Date / Time erythromycin base Allergy Other Verified 10/22/20 19:07 Sulfa (Sulfonamide Allergy Hives Verified 10/22/20 19:07 Antibiotics) sulfamethoxazole Allergy Hives Verified 10/22/20 19:07 [From Bactrim] trimethoprim [From Bactrim] Allergy Hives Verified 10/22/20 19:07 meloxicam AdvReac Severe Tachycardia Verified 11/17/20 16:19 Home Meds: Home Meds Gabapentin [Neurontin] 300 mg PO 1700 03/09/14 [History] Zolpidem [Ambien] 10 mg PO BEDTIME 03/09/14 [History] Propranolol [Inderal LA] 160 mg PO DAILY 03/12/15 [History] Levothyroxine 75 mcg PO ACBREAKFAST 08/19/15 [History] Losartan [Cozaar] 25 mg PO DAILY 08/19/15 [History] DULoxetine [Cymbalta] 90 mg PO DAILY 09/18/16 [History] atorvaSTATin [Lipitor] 80 mg PO DAILY 09/18/16 [History] Aspirin/Acetaminophen/Caffeine [Headache Relief Gelcap] 1 tab PO Q8H PRN 06/17/18 [History] Esomeprazole [NexIUM] 40 mg PO DAILY 06/17/18 [History] Gabapentin [Neurontin] 600 mg PO BID 06/17/18 [History] Orphenadrine [Norflex] 100 mg PO BID 06/17/18 [History] Metoclopramide [Reglan] 5 mg PO Q6H PRN 05/30/19 [History] Onabotulinumtoxina [Botox] 1 applic INJECT Q3M 08/29/19 [History] Rizatriptan Benzoate [Rizatriptan] 10 mg PO DAILY PRN 08/29/19 [History] Loratadine 10 mg PO DAILY PRN 04/10/20 [History] Naproxen Sodium 220 mg PO DAILY 04/10/20 [History] Ubidecarenone [Co Q-10] 10 mg PO BEDTIME 04/10/20 [History] Past Medical History HEENT History: Reports: Other (See Below) Cardiovascular History: Reports: High Cholesterol, Hypertension Gastrointestinal History: Reports: GERD, PUD, Other (See Below) Other Gastrointestinal History: chronic constipation Genitourinary History: Reports: Urinary Incontinence Other Genitourinary History: dysuria 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 PYROTECHNICS PRESS TENDER History: uterus removed, x3 vag del Musculoskeletal History: Reports: Arthritis, Back Pain, Chronic, Fracture, Osteoarthritis Other Musculoskeletal History: multiple fx, herniated discs Neurological History: Reports: Headaches, Chronic, Seizure Psychiatric History: Reports: Anxiety, Depression Endocrine/Metabolic History: Reports: Hypothyroidism Hematologic History: Reports: Other (See Below) Other Hematologic History: x1 with hysterectomy - Infectious Disease History Infectious Disease History: Reports: Novel Coronavirus - Past Surgical History HEENT Surgical History: Reports: Naso-Sinus Surgery, Tonsillectomy, Other (See Below) Other HEENT Surgeries/Procedures: wears glasses, multiple facial fractures Cardiovascular Surgical History: Reports: None GI Surgical History: Reports: Appendectomy Female Surgical History: Reports: Hysterectomy Endocrine Surgical History: Reports: None Neurological Surgical History: Reports: Lumbar Spine Musculoskeletal Surgical History: Reports: Joint Replacement, Knee Replacement, ORIF, Other (See Below) Other Musculoskeletal Surgeries/Procedures:: Biopsy to right knee Dermatological Surgical History: Reports: Skin Biopsy Social & Family History - Family History Family Medical History: No Pertinent Family History - Tobacco Use Tobacco Use Status *Q: Never Tobacco User - Caffeine Use Caffeine Use: Reports: Soda - Living Situation & Occupation Living situation: Reports: , with Spouse Occupation: Employed ED ROS GENERAL - Review of Systems Review Of Systems: Comprehensive ROS is negative, except as noted in HPI. - Physical Exam Exam: See Below Exam Limited By: No Limitations General Appearance: Alert, WD/WN, No Apparent Distress Eye Exam: Bilateral Eye: EOMI, Normal Inspection, PERRL Respiratory/Chest: No Respiratory Distress, Lungs Clear, Normal Breath Sounds, No Accessory Muscle Use, Chest Non-Tender Cardiovascular: Normal Peripheral Pulses, Regular Rate, Rhythm, No Edema Neuro Exam (Abbreviated): Alert, Oriented, Normal Cognition, No Motor/Sensory Deficits Extremities: Normal Inspection, Normal Capillary Refill Psychiatric: Normal Affect, Normal Mood Skin Exam: Warm, Dry, Intact, Normal Color, No Rash Course - Vital Signs Last Recorded V/S: Last Vital Signs Temp 97.7 F 11/17/20 16:13 Pulse 69 11/17/20 16:13 Resp 18 11/17/20 16:13 BP 170/96 H 11/17/20 16:13 Pulse Ox 97 11/17/20 16:13 - Orders/Labs/Meds Orders: Active Orders 24 hr Category Date Time Status Peripheral IV Care [RC] . DIRECTED Care 11/17/20 16:24 Active CMP [COMPREHENSIVE METABOLIC PN,CMP] [CHEM] Stat Lab 11/17/20 17:10 Received HYDROmorphone [Dilaudid] Med 11/17/20 17:41 Once 0.5 mg IVPUSH ONETIME ONE Sodium Chloride 0.9% [Saline Flush] Med 11/17/20 16:24 Active 10 ml FLUSH ASDIRECTED PRN Peripheral IV Insertion Adult [OM.PC] Routine Oth 11/17/20 16:24 Ordered Medication Orders Sodium Chloride (Saline Flush) 10 ml FLUSH ASDIRECTED PRN PRN Reason: Keep Vein Open Last Admin: 11/17/20 16:53 Dose: 10 ml Documented by: BRANDON Labs: Laboratory Tests 11/17/20 Range/Units 17:10 WBC 7.06 (3.98-10.04) K/mm3 RBC 4.11 (3.98-5.22) M/mm3 Hgb 11.7 (11.2-15.7) gm/dl Hct 37.6 (34.1-44.9) % MCV 91.5 (79.4-94.8) fl MCH 28.5 (25.6-32.2) pg MCHC 31.1 L (32.2-35.5) g/dl RDW Std Deviation 46.3 (36.4-46.3) fL Plt Count 272 (182-369) K/mm3 MPV 10.0 (9.4-12.3) fl Neut % (Auto) 39.6 (34.0-71.1) % Lymph % (Auto) 40.8 (19.3-51.7) % [place] % (Auto) 12.2 (4.7-12.5) % Eos % (Auto) 6.9 H (0.7-5.8) Baso % (Auto) 0.4 (0.1-1.2) % Neut # (Auto) 2.79 (1.56-6.13) K/mm3 Lymph # (Auto) 2.88 (1.18-3.74) K/mm3 [place] # (Auto) 0.86 H (0.24-0.36) K/mm3 Eos # (Auto) 0.49 H (0.04-0.36) K/mm3 Baso # (Auto) 0.03 (0.01-0.08) K/mm3 Meds: Medications Generic Name Dose Route Start Last Admin Trade Name Freq PRN Reason Stop Dose Admin Sodium Chloride 10 ml 11/17/20 16:24 11/17/20 16:53 Saline Flush FLUSH 10 ml ASDIRECTED PRN Administration Keep Vein Open Discontinued Medications Generic Name Dose Route Start Last Admin Trade Name Freq PRN Reason Stop Dose Admin Diphenhydramine HCl 25 mg 11/17/20 16:24 11/17/20 16:51 Benadryl IVPUSH 11/17/20 16:25 25 mg ONETIME ONE Administration Hydromorphone HCl 0.5 mg 11/17/20 16:35 11/17/20 17:00 Dilaudid IVPUSH 11/17/20 16:36 0.5 mg ONETIME ONE Administration Sodium Chloride 1,000 mls @ 999 mls/hr 11/17/20 16:24 11/17/20 16:46 Normal Saline IV 11/17/20 17:24 999 mls/hr ASDIRECTED ONE Administration Ketorolac Tromethamine 30 mg 11/17/20 16:24 11/17/20 16:49 Toradol IVPUSH 11/17/20 16:25 30 mg ONETIME ONE Administration Metoclopramide HCl 10 mg 11/17/20 16:24 11/17/20 16:54 Reglan IVPUSH 11/17/20 16:25 Not Given ONETIME ONE - Re-Assessments/Exams Free Text/Narrative Re-Assessment/Exam: 11/17/20 16:37 Patient presents to the ED for headache, we will get baseline labs, give her Toradol, Reglan, Benadryl, and Dilaudid along with IV fluids for ongoing headache management. 11/17/20 17:41 The patient's labs have started to result, CBC is unremarkable. Patient was reassessed at bedside and states she is feeling better however she still has a sharp pain behind her eyes, will repeat another 0.5 mg Dilaudid for management. Patient will be then discharged home, to go and rest. Departure - Departure Time of Disposition: 17:42 Disposition: Home, Self-Care 01 Condition: Good Clinical Impression: Migraine Qualifiers: Migraine type: unspecified Status migrainosus presence: without status migrainosus Intractability: not intractable Qualified Code(s): G43.909 - Migraine, unspecified, not intractable, without status migrainosus - Discharge Information *PRESCRIPTION DRUG MONITORING PROGRAM REVIEWED*: No *COPY OF PRESCRIPTION DRUG MONITORING REPORT IN PATIENT NAIDA: No Instructions: Migraine Headache, [id number] Referrals: Meredith Aly NP [Primary Care Provider] - Forms: ED Department Discharge Additional Instructions: You were evaluated in the ED for your headache. You were given a combination of medications and IV fluid for management. This did seem to provide you pretty good relief of your symptoms. Recommend that you go home and rest in a quiet, darkened room. Try also to keep well hydrated. Please return to the ED if your symptoms should change or worsen. Sepsis Event Note (ED) - Evaluation Sepsis Screening Result: No Definite Risk - Focused Exam Vital Signs: Vital Signs Temp Pulse Resp BP Pulse Ox 11/17/20 16:13 97.7 F 69 18 170/96 H 97 - My Orders Last 24 Hours: My Active Orders 11/17/20 16:24 Peripheral IV Care [RC] . DIRECTED Sodium Chloride 0.9% [Saline Flush] 10 ml FLUSH ASDIRECTED PRN Peripheral IV Insertion Adult [OM.PC] Routine 11/17/20 17:10 CMP [COMPREHENSIVE METABOLIC PN,CMP] [CHEM] Stat 11/17/20 17:41 HYDROmorphone [Dilaudid] 0.5 mg IVPUSH ONETIME ONE - Assessment/Plan Last 24 Hours: My Active Orders 11/17/20 16:24 Peripheral IV Care [RC] . DIRECTED Sodium Chloride 0.9% [Saline Flush] 10 ml FLUSH ASDIRECTED PRN Peripheral IV Insertion Adult [OM.PC] Routine 11/17/20 17:10 CMP [COMPREHENSIVE METABOLIC PN,CMP] [CHEM] Stat 11/17/20 17:41 HYDROmorphone [Dilaudid] 0.5 mg IVPUSH ONETIME ONE
[2020-11-17] MEDS: Metoclopramide 10 MG/2 ML SDV IVPUSH ONE ×2 (16:47→16:54)
== END 2020-11-17 17:57 | disposition home or self-care (01) ==
LOC: JD.ED 15:55
DX: G43.909 Migraine, unspecified, not intractable, without status migrainosus (principal); E78.00 Pure hypercholesterolemia, unspecified; I10 Essential (primary) hypertension; K21.9 Gastro-esophageal reflux disease without esophagitis; M19.90 Unspecified osteoarthritis, unspecified site; F41.9 Anxiety disorder, unspecified; F32.9 Major depressive disorder, single episode, unspecified; E03.9 Hypothyroidism, unspecified; Z88.1 Allergy status to other antibiotic agents; Z88.2 Allergy status to sulfonamides; Z88.8 Allergy status to other drugs, medicaments and biological substances; Z79.82 Long term (current) use of aspirin
CPT/HCPCS: 36415; 80053; 85025; 96374; 96375; 96376; 99283; J1170; J1200; J1885; J2765; J7030

== ENCOUNTER 2021-02-19 15:48 | Emergency (ER) | payer OTHER ==
[2021-02-19] MEDS ORDERED: Sodium Chloride 0.9% 10 ML Syringe FLUSH PRN (16:10)
[2021-02-19] MEDS ORDERED: Ketorolac 30 MG/ML SDV IVPUSH ONE (16:10)
[2021-02-19] MEDS ORDERED: diphenhydrAMINE 50 MG/ML SDV IVPUSH ONE (16:10)
[2021-02-19] MEDS ORDERED: Prochlorperazine 10 MG/2 ML SDV IVPUSH ONE (16:11)
[2021-02-19] MEDS ORDERED: HYDROmorphone 1 MG/ML Syringe IVPUSH ONE ×2 (16:11→17:16)
--- NOTE | 2021-02-19 16:15 | EDM.PDOC ---
ED HPI GENERAL MEDICAL PROBLEM - General Chief Complaint: Headache Stated Complaint: MIGRAINE Time Seen by Provider: 02/19/21 15:54 Source of Information: Reports: Patient History Limitations: Reports: No Limitations - History of Present Illness INITIAL COMMENTS - FREE TEXT/NARRATIVE: The patient presents with a migraine headache. This has been going on for a few days. She tried her home medications and went to the clinic for a shot of toradol and it did not help. She has nausea but no vomiting. She has no numbness or weakness. She has no fever, chills, cough, chest pain or abdominal pain. She has been getting trigger point injections and botox injections. Onset: Gradual Duration: Day(s): Location: Reports: Head Quality: Reports: Sharp Severity: Severe Improves with: Reports: None Worsens with: Reports: None Associated Symptoms: Reports: Headaches, Nausea/Vomiting. Denies: Chest Pain, Cough, Fever/Chills, Shortness of Breath Headache Pain Score (Numeric/FACES): 8 - Related Data Allergies Allergy/AdvReac Type Severity Reaction Status Date / Time erythromycin base Allergy Other Verified 02/19/21 16:00 Sulfa (Sulfonamide Allergy Hives Verified 02/19/21 16:00 Antibiotics) sulfamethoxazole Allergy Hives Verified 02/19/21 16:00 [From Bactrim] trimethoprim [From Bactrim] Allergy Hives Verified 02/19/21 16:00 meloxicam AdvReac Intermediate Tachycardia Verified 02/19/21 16:00 Home Meds: Home Meds Zolpidem [Ambien] 10 mg PO BEDTIME 03/09/14 [History] Propranolol [Inderal LA] 160 mg PO DAILY 03/12/15 [History] Levothyroxine 75 mcg PO ACBREAKFAST 08/19/15 [History] Losartan [Cozaar] 25 mg PO DAILY 08/19/15 [History] DULoxetine [Cymbalta] 60 mg PO DAILY 09/18/16 [History] atorvaSTATin [Lipitor] 80 mg PO DAILY 09/18/16 [History] Esomeprazole [NexIUM] 40 mg PO DAILY 06/17/18 [History] Gabapentin [Neurontin] 600 mg PO TID 06/17/18 [History] Orphenadrine [Norflex] 100 mg PO BID PRN 06/17/18 [History] Metoclopramide [Reglan] 5 mg PO Q6H PRN 05/30/19 [History] Onabotulinumtoxina [Botox] 1 applic INJECT Q3M 08/29/19 [History] Rizatriptan Benzoate [Rizatriptan] 10 mg PO DAILY PRN 08/29/19 [History] Naproxen Sodium 220 mg PO BID PRN 04/10/20 [History] Ubidecarenone [Co Q-10] 10 mg PO BEDTIME 04/10/20 [History] Pilocarpine [Salagen] 5 mg PO 02/19/21 [History] Pilocarpine [Salagen] 5 mg PO TID 02/19/21 [History] Past Medical History HEENT History: Reports: Other (See Below) Cardiovascular History: Reports: High Cholesterol, Hypertension Gastrointestinal History: Reports: GERD, PUD, Other (See Below) Other Gastrointestinal History: chronic constipation Genitourinary History: Reports: Urinary Incontinence Other Genitourinary History: dysuria 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 History: uterus removed, x3 vag del Musculoskeletal History: Reports: Arthritis, Back Pain, Chronic, Fracture, Osteoarthritis Other Musculoskeletal History: multiple fx, herniated discs Neurological History: Reports: Headaches, Chronic, Seizure Psychiatric History: Reports: Anxiety, Depression Endocrine/Metabolic History: Reports: Hypothyroidism Hematologic History: Reports: Other (See Below) Other Hematologic History: x1 with hysterectomy - Infectious Disease History Infectious Disease History: Reports: Novel Coronavirus - Past Surgical History HEENT Surgical History: Reports: Naso-Sinus Surgery, Tonsillectomy, Other (See Below) Other HEENT Surgeries/Procedures: wears glasses, multiple facial fractures Cardiovascular Surgical History: Reports: None GI Surgical History: Reports: Appendectomy Female Surgical History: Reports: Hysterectomy Endocrine Surgical History: Reports: None Neurological Surgical History: Reports: Lumbar Spine Musculoskeletal Surgical History: Reports: Joint Replacement, Knee Replacement, ORIF, Other (See Below) Other Musculoskeletal Surgeries/Procedures:: Biopsy to right knee Dermatological Surgical History: Reports: Skin Biopsy Social & Family History - Family History Family Medical History: No Pertinent Family History - Tobacco Use Tobacco Use Status *Q: Never Tobacco User - Caffeine Use Caffeine Use: Reports: Soda - Recreational Drug Use Recreational Drug Use: No - Living Situation & Occupation Living situation: Reports: , with Spouse Occupation: Employed [facility] GENERAL - Review of Systems Review Of Systems: See Below Constitutional: Reports: No Symptoms HEENT: Reports: No Symptoms Respiratory: Reports: No Symptoms Cardiovascular: Reports: No Symptoms Endocrine: Reports: No Symptoms GI/Abdominal: Reports: Nausea. Denies: Abdominal Pain, Vomiting : Reports: No Symptoms Musculoskeletal: Reports: No Symptoms Skin: Reports: No Symptoms Neurological: Reports: Headache - Physical Exam Exam: See Below Exam Limited By: No Limitations General Appearance: Alert, No Apparent Distress Ears: Normal External Exam Nose: Normal Inspection Head Exam: Atraumatic, Normocephalic Neck: Normal Inspection Respiratory/Chest: No Respiratory Distress, Lungs Clear, Normal Breath Sounds Cardiovascular: Regular Rate, Rhythm, No Edema, No Murmur GI/Abdominal: Soft, Non-Tender, No Organomegaly, No Mass Neuro Exam (Abbreviated): Alert, Oriented, No Motor/Sensory Deficits Course - Vital Signs Last Recorded V/S: Last Vital Signs Temp 95.8 F L 02/19/21 17:09 Pulse 68 02/19/21 17:09 Resp 16 02/19/21 17:09 BP 141/87 H 02/19/21 17:09 Pulse Ox 98 02/19/21 17:09 - Orders/Labs/Meds Orders: Active Orders 24 hr Category Date Time Status Peripheral IV Care [RC] . DIRECTED Care 02/19/21 16:10 Active Sodium Chloride 0.9% [Saline Flush] Med 02/19/21 16:10 Active 10 ml FLUSH ASDIRECTED PRN Peripheral IV Insertion Adult [OM.PC] Routine Oth 02/19/21 16:10 Ordered Medication Orders Sodium Chloride (Sodium Chloride 0.9% 10 Ml Syringe) 10 ml FLUSH ASDIRECTED PRN PRN Reason: Keep Vein Open Last Admin: 02/19/21 16:50 Dose: 10 ml Documented by: JONES Meds: Medications Generic Name Dose Route Start Last Admin Trade Name Freq PRN Reason Stop Dose Admin Sodium Chloride 10 ml 02/19/21 16:10 02/19/21 16:50 Sodium Chloride 0.9% 10 Ml Syringe FLUSH 10 ml ASDIRECTED PRN Administration Keep Vein Open Discontinued Medications Generic Name Dose Route Start Last Admin Trade Name Freq PRN Reason Stop Dose Admin Diphenhydramine HCl 50 mg 02/19/21 16:10 02/19/21 16:53 Diphenhydramine 50 Mg/Ml Sdv IVPUSH 02/19/21 16:11 50 mg ONETIME ONE Administration Hydromorphone HCl 1 mg 02/19/21 16:11 02/19/21 16:57 Hydromorphone 1 Mg/Ml Syringe IVPUSH 02/19/21 16:12 1 mg ONETIME ONE Administration Ketorolac Tromethamine 30 mg 02/19/21 16:10 02/19/21 16:55 Ketorolac 30 Mg/Ml Sdv IVPUSH 02/19/21 16:11 30 mg ONETIME ONE Administration Prochlorperazine Edisylate 10 mg 02/19/21 16:11 02/19/21 16:51 Prochlorperazine 10 Mg/2 Ml Sdv IVPUSH 02/19/21 16:12 10 mg ONETIME ONE Administration - Re-Assessments/Exams Free Text/Narrative Re-Assessment/Exam: 02/19/21 16:15 I ordered an IV saline lock, toradol 30mg IV, dilaudid 1mg IV, benadryl 50mg IV and compazine 10mg IV. 02/19/21 17:15 She feels a little better. I will give her some more dilaudid and discharge her home. Departure - Departure Time of Disposition: 17:20 Disposition: Home, Self-Care 01 Condition: Good Clinical Impression: Migraine - Discharge Information *PRESCRIPTION DRUG MONITORING PROGRAM REVIEWED*: Not Applicable *COPY OF PRESCRIPTION DRUG MONITORING REPORT IN PATIENT NAIDA: Not Applicable Referrals: Meredith Aly NP [Primary Care Provider] - Forms: ED Department Discharge Additional Instructions: Go home and rest. Take your medication as prescribed. Please return if you are worse. Sepsis Event Note (ED) - Evaluation Sepsis Screening Result: No Definite Risk - Focused Exam Vital Signs: Vital Signs Temp Pulse Resp BP Pulse Ox 02/19/21 17:09 95.8 F L 68 16 141/87 H 98 02/19/21 15:57 98.7 F 68 16 159/85 H 98 - My Orders Last 24 Hours: My Active Orders 02/19/21 16:10 Peripheral IV Care [RC] . DIRECTED Sodium Chloride 0.9% [Saline Flush] 10 ml FLUSH ASDIRECTED PRN Peripheral IV Insertion Adult [OM.PC] Routine - Assessment/Plan Last 24 Hours: My Active Orders 02/19/21 16:10 Peripheral IV Care [RC] . DIRECTED Sodium Chloride 0.9% [Saline Flush] 10 ml FLUSH ASDIRECTED PRN Peripheral IV Insertion Adult [OM.PC] Routine
[2021-02-19 17:52] VITALS: BP 134/75; PULSE 98
== END 2021-02-19 17:45 | disposition home or self-care (01) ==
LOC: JD.ED 15:48
DX: G43.909 Migraine, unspecified, not intractable, without status migrainosus (principal); E78.00 Pure hypercholesterolemia, unspecified; I10 Essential (primary) hypertension; K21.9 Gastro-esophageal reflux disease without esophagitis; E03.9 Hypothyroidism, unspecified; Z88.1 Allergy status to other antibiotic agents; Z88.2 Allergy status to sulfonamides; Z88.8 Allergy status to other drugs, medicaments and biological substances; Z79.899 Other long term (current) drug therapy
CPT/HCPCS: 96374; 96375; 96376; 99283; J0780; J1170; J1200; J1885

== ENCOUNTER 2021-02-26 17:55 | Emergency (ER) | payer OTHER ==
[2021-02-26] MEDS ORDERED: HYDROmorphone 0.5 MG/0.5 ML Syringe IVPUSH ONE ×2 (18:17→19:31)
[2021-02-26] MEDS ORDERED: Sodium Chloride 0.9% 1,000 ML IV STA (18:17)
[2021-02-26] MEDS ORDERED: Ketorolac 30 MG/ML SDV IVPUSH ONE (18:17)
[2021-02-26] MEDS ORDERED: Prochlorperazine 10 MG/2 ML SDV IVPUSH ONE (18:18)
[2021-02-26] MEDS ORDERED: diphenhydrAMINE 50 MG/ML SDV IVPUSH ONE (18:19)
--- NOTE | 2021-02-26 19:01 | CT ---
Head CT Technique: Multiple axial sections through the brain were obtained. Intravenous contrast was not utilized. Reconstructed coronal and sagittal images were obtained. Comparison: Prior head CT study of 03/11/16. Findings: Ventricles along with basal cisterns and sulci over the convexities appear within normal limits for the patient's age. Minimal low density is seen within the left posterior basal ganglia which is stable from prior study. No abnormal parenchymal densities are otherwise seen. No evidence of intracranial hemorrhage. No midline shift or mass-effect is seen. Bone window settings were reviewed. Visualized mastoid sinuses and paranasal sinuses show nothing acute. Calvarium shows no acute abnormality. Impression: 1. Nothing acute is identified on noncontrast head CT study. 2. No appreciable change is seen from previous exam. Diagnostic code #2
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
[2021-02-26] MEDS ORDERED: Acetaminophen 325 MG Tab PO ONE (20:14)
[2021-02-26 21:39] VITALS: BP 163/94; PULSE 84
== END 2021-02-26 20:05 | disposition home or self-care (01) ==
LOC: JD.ED 17:55
DX: G43.909 Migraine, unspecified, not intractable, without status migrainosus (principal); E78.00 Pure hypercholesterolemia, unspecified; I10 Essential (primary) hypertension; K21.9 Gastro-esophageal reflux disease without esophagitis; E03.9 Hypothyroidism, unspecified; Z86.16 Personal history of COVID-19; Z88.1 Allergy status to other antibiotic agents; Z88.6 Allergy status to analgesic agent; Z88.2 Allergy status to sulfonamides; Z79.899 Other long term (current) drug therapy
CPT/HCPCS: 70450; 96374; 96375; 96376; 99283; A9270; J0780; J1170; J1200; J1885; J7030; 99284

== ENCOUNTER 2021-09-03 20:01 | Emergency (ER) | payer OTHER ==
[2021-09-03 20:11] VITALS: BP 160/84; PULSE 71
[2021-09-03] MEDS ORDERED: Metoclopramide 10 MG/2 ML SDV IVPUSH ONE (20:40)
[2021-09-03] MEDS ORDERED: Ketorolac 15 MG/ML SDV IVPUSH ONE (20:40)
[2021-09-03] MEDS ORDERED: Lactated Ringers 1,000 ML IV ONE (20:40)
[2021-09-03] MEDS ORDERED: diphenhydrAMINE 50 MG/ML SDV IVPUSH ONE (20:41)
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
[2021-09-03] MEDS ORDERED: Morphine 4 MG/ML Syringe IVPUSH ONE (22:32)
== END 2021-09-03 23:49 | disposition home or self-care (01) ==
LOC: JD.ED 20:01
DX: R51.9 Headache, unspecified (principal); E78.00 Pure hypercholesterolemia, unspecified; E03.9 Hypothyroidism, unspecified; I10 Essential (primary) hypertension; Z79.899 Other long term (current) drug therapy; Z88.2 Allergy status to sulfonamides; Z88.1 Allergy status to other antibiotic agents; Z88.8 Allergy status to other drugs, medicaments and biological substances
CPT/HCPCS: 96374; 96375; 99283; J1200; J1885; J2270; J2765; J7120

== ENCOUNTER 2021-09-13 18:39 | Emergency (ER) | payer OTHER ==
[2021-09-13] MEDS ORDERED: HYDROmorphone 1 MG/ML Syringe IM ONE (20:04)
[2021-09-13] MEDS ORDERED: Ondansetron 4 MG/2 ML SDV IM ONE (20:04)
[2021-09-13] MEDS ORDERED: diphenhydrAMINE 50 MG/ML SDV IM ONE (20:04)
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
[2021-09-13] MEDS ORDERED: Ketorolac 30 MG/ML SDV IM ONE (21:04)
[2021-09-13] MEDS ORDERED: HYDROmorphone 0.5 MG/0.5 ML Syringe IM ONE (22:31)
[2021-09-13 23:35] VITALS: BP 148/89; PULSE 72
== END 2021-09-13 22:47 | disposition home or self-care (01) ==
LOC: JD.ED 18:39
DX: G43.909 Migraine, unspecified, not intractable, without status migrainosus (principal); E78.00 Pure hypercholesterolemia, unspecified; I10 Essential (primary) hypertension; K21.9 Gastro-esophageal reflux disease without esophagitis; E03.9 Hypothyroidism, unspecified; Z88.2 Allergy status to sulfonamides; Z88.1 Allergy status to other antibiotic agents; Z88.8 Allergy status to other drugs, medicaments and biological substances; Z79.899 Other long term (current) drug therapy
CPT/HCPCS: 96372; 99283; J1170; J1200; J1885; J2405

== ENCOUNTER 2022-01-30 23:07 | Emergency (ER) | payer OTHER ==
[2022-01-30 23:35] VITALS: BP 136/93; PULSE 86
== END 2022-01-31 00:47 | disposition home or self-care (01) ==
LOC: JD.ED 23:07
DX: R68.83 Chills (without fever) (principal); E78.00 Pure hypercholesterolemia, unspecified; I10 Essential (primary) hypertension; K21.9 Gastro-esophageal reflux disease without esophagitis; E03.9 Hypothyroidism, unspecified; Z86.16 Personal history of COVID-19; Z88.2 Allergy status to sulfonamides; Z88.1 Allergy status to other antibiotic agents; Z88.8 Allergy status to other drugs, medicaments and biological substances; Z79.899 Other long term (current) drug therapy
CPT/HCPCS: 99283

== ENCOUNTER 2022-05-12 14:33 | Emergency (ER) | payer OTHER ==
[2022-05-12 16:09] VITALS: BP 145/95; PULSE 65
[2022-05-12] MEDS ORDERED: diphenhydrAMINE 50 MG/ML SDV IVPUSH ONE (16:31)
[2022-05-12] MEDS ORDERED: Ketorolac 30 MG/ML SDV IVPUSH ONE (16:31)
[2022-05-12] MEDS ORDERED: Sodium Chloride 0.9% 1,000 ML IV ONE (16:31)
[2022-05-12] MEDS ORDERED: Metoclopramide 10 MG/2 ML SDV IVPUSH ONE (16:31)
[2022-05-12] MEDS ORDERED: HYDROmorphone 0.5 MG/0.5 ML Syringe IVPUSH ONE ×2 (18:39→19:28)
[2022-05-12] MEDS ORDERED: diphenhydrAMINE 25 MG Cap PO ONE (20:20)
== END 2022-05-12 20:51 | disposition home or self-care (01) ==
LOC: JD.ED 14:33
DX: G43.909 Migraine, unspecified, not intractable, without status migrainosus (principal); E78.00 Pure hypercholesterolemia, unspecified; I10 Essential (primary) hypertension; M19.90 Unspecified osteoarthritis, unspecified site; E03.9 Hypothyroidism, unspecified; Z88.2 Allergy status to sulfonamides; Z88.1 Allergy status to other antibiotic agents; Z88.8 Allergy status to other drugs, medicaments and biological substances; Z79.899 Other long term (current) drug therapy; Z86.16 Personal history of COVID-19
CPT/HCPCS: 96374; 96375; 96376; 99283; A9270; J1170; J1200; J1885; J2765; J7030; 99282

== ENCOUNTER 2022-08-25 21:54 | Emergency (ER) | payer OTHER ==
[2022-08-25 22:12] VITALS: BP 90/59; PULSE 113
[2022-08-25] MEDS ORDERED: oxyCODONE 5 MG Tab PO ONE (23:08)
[2022-08-25] MEDS ORDERED: HYDROmorphone 1 MG/ML Syringe IM ONE (23:08)
== END 2022-08-25 23:30 | disposition home or self-care (01) ==
LOC: JD.ED 21:54
DX: G89.18 Other acute postprocedural pain (principal); M25.562 Pain in left knee; E78.00 Pure hypercholesterolemia, unspecified; I10 Essential (primary) hypertension; Z88.2 Allergy status to sulfonamides; Z88.1 Allergy status to other antibiotic agents; Z79.899 Other long term (current) drug therapy; Z86.16 Personal history of COVID-19; Z90.49 Acquired absence of other specified parts of digestive tract; Z90.710 Acquired absence of both cervix and uterus
CPT/HCPCS: 96372; 99283

== ENCOUNTER → 2022-08-25 | Day surgery (SDC) | payer OTHER ==
[~2022-08-25] MED LIST: Acetaminophen 325 MG Tab ONE; EPINEPHrine 1 MG/ML SDV ONE; HYDROmorphone 0.5 MG/0.5 ML Syringe IV ONE; HYDROmorphone 0.5 MG/0.5 ML Syringe ONE; Lactated Ringers 1,000 ML IV ONE; Lactated Ringers 1,000 ML ONE; Lidocaine 1%/Sod Bicarbonate in NS 8.4% 1 ML Syringe IDERM ONE; Midazolam 1 MG/ML 2 ML SDV IV ONE; Midazolam 1 MG/ML 2 ML SDV ONE; Morphine 8 MG, EPINEPHrine 0.3 MG, Cefuroxime 750 MG, Ketorolac 30 MG, Sodium Chloride ... PRN; Ondansetron 4 MG/2 ML SDV ONE; Pregabalin 25 MG Cap ONE; Pregabalin 25 MG Cap PO ONE; Propofol 200 MG/20 ML SDV ONE; Ropivacaine 0.5% 5 MG/ML 30 ML SDV ONE; Vancomycin 1 GM SDV ONE; ceFAZolin 2 GM Vial ONE; diphenhydrAMINE 50 MG/ML SDV IV ONE; diphenhydrAMINE 50 MG/ML SDV ONE; fentaNYL 100 MCG/2 ML SDV IV ONE; fentaNYL 100 MCG/2 ML SDV ONE; oxyCODONE 5 MG Tab ONE; oxyCODONE 5 MG Tab PO ONE; oxyCODONE ER 10 MG TAB.ER ONE; oxyCODONE ER 10 MG TAB.ER PO ONE
== END | disposition home or self-care (01) ==
LOC: JD.SDS 06:00
PROVIDERS: ATTEND Orthopaedic Surgery
DX: M17.12 Unilateral primary osteoarthritis, left knee (principal); I10 Essential (primary) hypertension; E03.9 Hypothyroidism, unspecified; F32.A Depression, unspecified; F41.9 Anxiety disorder, unspecified; K21.9 Gastro-esophageal reflux disease without esophagitis; G43.909 Migraine, unspecified, not intractable, without status migrainosus; E66.9 Obesity, unspecified; M79.7 Fibromyalgia; N18.9 Chronic kidney disease, unspecified; N28.1 Cyst of kidney, acquired; D63.1 Anemia in chronic kidney disease; Z88.2 Allergy status to sulfonamides; Z88.6 Allergy status to analgesic agent; Z79.899 Other long term (current) drug therapy; Z79.82 Long term (current) use of aspirin; Z90.49 Acquired absence of other specified parts of digestive tract; Z98.890 Other specified postprocedural states; Z68.31 Body mass index [BMI] 31.0-31.9, adult; Z79.890 Hormone replacement therapy
CPT/HCPCS: 0055T; 27447; 73560; 97110; 97116; 97161; A9270; C1713; C1776; J0171; J0690; J0697; J1170; J1200; J1885; J2250; J2270; J2405; J2704; J2795; J3010; J3370; J7120; 01402; 64450; 76942

== ENCOUNTER 2022-12-24 15:47 | Emergency (ER) | payer OTHER ==
[2022-12-24 16:08] VITALS: BP 145/73; PULSE 71
[2022-12-24] MEDS ORDERED: diphenhydrAMINE 50 MG/ML SDV IVPUSH ONE (16:56)
[2022-12-24] MEDS ORDERED: Sodium Chloride 0.9% 1,000 ML IV ONE (16:56)
[2022-12-24] MEDS ORDERED: HYDROmorphone 0.5 MG/0.5 ML Syringe IVPUSH ONE ×2 (16:56→18:36)
[2022-12-24] MEDS ORDERED: Ketorolac 30 MG/ML SDV IVPUSH ONE (16:56)
[2022-12-24] MEDS ORDERED: Metoclopramide 10 MG/2 ML SDV IVPUSH ONE (16:56)
[2022-12-24 18:19] LABS: CORONAVIRUS COVID-19 NAA NEGATIVE (NEGATIVE)
== END 2022-12-24 20:04 | disposition home or self-care (01) ==
LOC: JD.ED 15:47
DX: G43.909 Migraine, unspecified, not intractable, without status migrainosus (principal); I10 Essential (primary) hypertension; K21.9 Gastro-esophageal reflux disease without esophagitis; Z88.2 Allergy status to sulfonamides; Z88.1 Allergy status to other antibiotic agents; Z88.8 Allergy status to other drugs, medicaments and biological substances; Z20.822 Contact with and (suspected) exposure to COVID-19
CPT/HCPCS: 0241U; 96361; 96374; 96375; 96376; 99283; J1170; J1200; J1885; J2765; J7030

== ENCOUNTER 2023-08-27 15:17 | Emergency (ER) | payer OTHER ==
[2023-08-27] MEDS ORDERED: Sodium Chloride 0.9% 10 ML Syringe FLUSH PRN (15:51)
[2023-08-27] MEDS ORDERED: HYDROmorphone 0.5 MG/0.5 ML Syringe IVPUSH ONE ×2 (15:51→17:57)
[2023-08-27] MEDS ORDERED: Ondansetron 4 MG/2 ML SDV IVPUSH ONE (15:52)
[2023-08-27] MEDS ORDERED: Lidocaine/EPINEPHrine/Tetracaine Soln 1 ML TOP ONE (15:55)
[2023-08-27] MEDS ORDERED: Lidocaine 1% 10 ML MDV INJECT ONE (17:51)
[2023-08-27 19:55] VITALS: BP 121/82; PULSE 73
== END 2023-08-27 19:24 | disposition home or self-care (01) ==
LOC: JD.ED 15:17
DX: S00.03XA Contusion of scalp, initial encounter (principal); E78.00 Pure hypercholesterolemia, unspecified; I10 Essential (primary) hypertension; Z88.2 Allergy status to sulfonamides; Z88.1 Allergy status to other antibiotic agents; Z88.8 Allergy status to other drugs, medicaments and biological substances; Z86.16 Personal history of COVID-19; Z79.899 Other long term (current) drug therapy; W19.XXXA Unspecified fall, initial encounter
CPT/HCPCS: 70450; 72125; 96374; 96375; 96376; 99283; J1170; J2405; J3490

== ENCOUNTER 2023-10-14 16:16 | Emergency (ER) | payer OTHER ==
[2023-10-14 17:19] LABS: CORONAVIRUS COVID-19 NAA NEGATIVE (NEGATIVE); INFLUENZA A NAA NEGATIVE (NEGATIVE); RESPIRATORY SYNCYTIAL VIR NAA NEGATIVE (NEGATIVE)
[2023-10-14] MEDS ORDERED: diphenhydrAMINE 50 MG/ML SDV IVPUSH ONE (18:22)
[2023-10-14] MEDS ORDERED: Ketorolac 30 MG/ML SDV IVPUSH ONE (18:22)
[2023-10-14] MEDS ORDERED: HYDROmorphone 0.5 MG/0.5 ML Syringe IVPUSH ONE ×2 (18:22→20:00)
[2023-10-14] MEDS ORDERED: Metoclopramide 10 MG/2 ML SDV IVPUSH ONE (18:22)
[2023-10-14] MEDS ORDERED: Sodium Chloride 0.9% 1,000 ML IV STA (18:22)
[2023-10-14] MEDS ORDERED: Sodium Chloride 0.9% 10 ML Syringe FLUSH PRN (18:22)
[2023-10-14] MEDS ORDERED: Dexamethasone 10 MG/ML SDV IVPUSH ONE (18:22)
[2023-10-14 19:33] LABS: BASOPHILS ABSOLUTE AUTO 0.1 K/mm3 (0.0-0.2); EOSINOPHILS ABSOLUTE AUTO 0.9 K/mm3 (0.0-0.4); EOSINOPHILS PERCENT AUTO 10.1 % (0.0-6.0); HEMOGLOBIN 10.6 gm/dl (12.0-16.0); IMMATURE GRAN ABSOLUTE AUTO 0.06 K/mm3 (0.00-0.05); IMMATURE GRAN PERCENT AUTO 0.7 % (0.0-0.4); LYMPHOCYTES ABSOLUTE AUTO 2.2 K/mm3 (1.0-4.8); LYMPHOCYTES PERCENT AUTO 24.1 % (24.0-44.0); MEAN CORPUSCULAR HGB CONC 31.2 g/dl (32.0-36.0); MEAN CORPUSCULAR VOLUME 83.5 fl (83.0-99.0); MEAN PLATELET VOLUME 9.8 fl (9.4-12.3); MONOCYTES ABSOLUTE AUTO 0.9 K/mm3 (0.0-0.8); MONOCYTES PERCENT AUTO 9.8 % (0.0-8.0); NEUTROPHILS PERCENT AUTO 54.3 % (41.0-71.0); PLATELET COUNT,PLT 265 K/mm3 (150-400); RED BLOOD CELL COUNT 4.07 M/mm3 (4.10-5.30); WHITE BLOOD CELL COUNT,WBC 9.11 K/mm3 (3.9-11.3)
[2023-10-14 19:59] LABS: A/G RATIO 0.9 (1-2); ALBUMIN 3.3 g/dl (3.4-5.0); ANION GAP 14.2 (5-15); BILIRUBIN TOTAL 0.2 mg/dL (0.2-1.0); BUN/CREATININE RATIO 18.8 (14-18); CALCIUM 8.8 mg/dL (8.5-10.1); CREATININE 0.8 mg/dL (0.55-1.02); EST CRCL DRUG DOSING (CG) 64.58 mL/min; POTASSIUM,K 4.2 mEq/L (3.5-5.1); PROTEIN TOTAL,TP 6.9 g/dl (6.4-8.2)
[2023-10-14 21:01] VITALS: BP 153/91; PULSE 72
== END 2023-10-14 20:40 | disposition home or self-care (01) ==
LOC: JD.ED 16:16
DX: G43.909 Migraine, unspecified, not intractable, without status migrainosus (principal); I10 Essential (primary) hypertension; E78.00 Pure hypercholesterolemia, unspecified; K21.9 Gastro-esophageal reflux disease without esophagitis; Z90.710 Acquired absence of both cervix and uterus; Z86.16 Personal history of COVID-19; Z79.899 Other long term (current) drug therapy; Z88.2 Allergy status to sulfonamides; Z88.1 Allergy status to other antibiotic agents; Z88.8 Allergy status to other drugs, medicaments and biological substances; Z20.822 Contact with and (suspected) exposure to COVID-19
CPT/HCPCS: 0241U; 36415; 80053; 85025; 96374; 96375; 96376; 99283; J1100; J1170; J1200; J1885; J2765; J3490; J7030

== ENCOUNTER 2024-09-30 15:37 | Emergency (ER) | payer OTHER ==
[2024-09-30] MEDS: LORazepam 1 MG Tab PO ONE (17:48)
[2024-09-30 17:53] VITALS: BP 119/74; PULSE 73
== END 2024-09-30 18:00 | disposition home or self-care (01) ==
LOC: JD.ED 15:37
DX: R68.84 Jaw pain (principal); E78.00 Pure hypercholesterolemia, unspecified; I10 Essential (primary) hypertension; K21.9 Gastro-esophageal reflux disease without esophagitis; Z86.16 Personal history of COVID-19; Z91.018 Allergy to other foods; Z88.2 Allergy status to sulfonamides; Z88.8 Allergy status to other drugs, medicaments and biological substances; Z88.1 Allergy status to other antibiotic agents
CPT/HCPCS: 93005; 99283; A9270-GY

== ENCOUNTER 2025-01-10 14:42 | Emergency (ER) | payer OTHER ==
[2025-01-10] MEDS ORDERED: Sodium Chloride 0.9% 10 ML Syringe FLUSH PRN (15:40)
[2025-01-10 15:51] LABS: BASOPHILS ABSOLUTE AUTO 0.1 K/mm3 (0.0-0.2); BASOPHILS PERCENT AUTO 1.1 % (0.0-1.0); EOSINOPHILS ABSOLUTE AUTO 0.9 K/mm3 (0.0-0.4); EOSINOPHILS PERCENT AUTO 9.1 % (0.0-6.0); HEMATOCRIT 43.5 % (37.0-47.0); HEMOGLOBIN 13.8 gm/dl (12.0-16.0); IMMATURE GRAN ABSOLUTE AUTO 0.23 K/mm3 (0.00-0.05); IMMATURE GRAN PERCENT AUTO 2.4 % (0.0-0.4); LYMPHOCYTES ABSOLUTE AUTO 2.4 K/mm3 (1.0-4.8); LYMPHOCYTES PERCENT AUTO 24.7 % (24.0-44.0); MEAN CORPUSCULAR HEMOGLOBIN 28.8 pg (28.0-32.0); MEAN CORPUSCULAR HGB CONC 31.7 g/dl (32.0-36.0); MEAN CORPUSCULAR VOLUME 90.8 fl (83.0-99.0); MONOCYTES ABSOLUTE AUTO 0.9 K/mm3 (0.0-0.8); MONOCYTES PERCENT AUTO 9.7 % (0.0-8.0); NEUTROPHILS ABSOLUTE AUTO 5.2 K/mm3 (1.8-7.7); PLATELET COUNT,PLT 314 K/mm3 (150-400); RED BLOOD CELL COUNT 4.79 M/mm3 (4.10-5.30); WHITE BLOOD CELL COUNT,WBC 9.73 K/mm3 (3.9-11.3)
[2025-01-10] MEDS: Albuterol/Ipratropium 3.0-0.5 MG/3 ML Neb Soln NEB ONE (15:57)
[2025-01-10 16:03] LABS: ALBUMIN 3.7 g/dl (3.4-5.0); ANION GAP 12.3 (5-15); BILIRUBIN TOTAL 0.3 mg/dL (0.2-1.0); C-REACTIVE PROTEIN 0.74 mg/dL (<0.30); CALCIUM 9.6 mg/dL (8.5-10.1); EST CRCL DRUG DOSING (CG) 51.02 mL/min; POTASSIUM,K 4.3 mEq/L (3.5-5.1); PROTEIN TOTAL,TP 7.6 g/dl (6.4-8.2)
[2025-01-10 17:06] VITALS: BP 113/70; PULSE 70
== END 2025-01-10 17:05 | disposition home or self-care (01) ==
LOC: JD.ED 14:42
DX: J40 Bronchitis, not specified as acute or chronic (principal); I10 Essential (primary) hypertension; E78.00 Pure hypercholesterolemia, unspecified; K21.9 Gastro-esophageal reflux disease without esophagitis; Z90.49 Acquired absence of other specified parts of digestive tract; Z90.710 Acquired absence of both cervix and uterus; Z88.1 Allergy status to other antibiotic agents; Z88.2 Allergy status to sulfonamides; Z88.8 Allergy status to other drugs, medicaments and biological substances; Z79.51 Long term (current) use of inhaled steroids; Z79.82 Long term (current) use of aspirin; Z79.890 Hormone replacement therapy; Z79.899 Other long term (current) drug therapy
CPT/HCPCS: 36415; 71046; 71046-26; 80053; 85025; 86140; 94640; 99283; 99285; J7620-GY

== ENCOUNTER 2025-01-22 17:51 | Emergency (ER) | payer OTHER ==
[2025-01-22 21:59] VITALS: BP 115/68; PULSE 64
== END 2025-01-22 21:58 | disposition home or self-care (01) ==
LOC: JD.ED 17:51
DX: S80.02XA Contusion of left knee, initial encounter (principal); I10 Essential (primary) hypertension; E78.00 Pure hypercholesterolemia, unspecified; Z88.2 Allergy status to sulfonamides; Z88.1 Allergy status to other antibiotic agents; Z88.8 Allergy status to other drugs, medicaments and biological substances; Z79.890 Hormone replacement therapy; Z79.899 Other long term (current) drug therapy; Z79.51 Long term (current) use of inhaled steroids; W18.39XA Other fall on same level, initial encounter; Y93.89 Activity, other specified
CPT/HCPCS: 73562-26-LT; 73562-LT; 99283

== ENCOUNTER 2025-08-02 11:38 | Emergency (ER) | payer OTHER ==
[2025-08-02] MEDS: diphenhydrAMINE 50 MG/ML SDV IVPUSH ONE (13:10)
[2025-08-02 13:11] LABS: BASOPHILS ABSOLUTE AUTO 0.1 K/mm3 (0.0-0.2); BASOPHILS PERCENT AUTO 0.5 % (0.0-1.0); EOSINOPHILS ABSOLUTE AUTO 0.4 K/mm3 (0.0-0.4); EOSINOPHILS PERCENT AUTO 3.7 % (0.0-6.0); IMMATURE GRAN ABSOLUTE AUTO 0.09 K/mm3 (0.00-0.05); IMMATURE GRAN PERCENT AUTO 0.8 % (0.0-0.4); LYMPHOCYTES ABSOLUTE AUTO 2.5 K/mm3 (1.0-4.8); LYMPHOCYTES PERCENT AUTO 22.6 % (24.0-44.0); MEAN PLATELET VOLUME 9.6 fl (9.4-12.3); MONOCYTES ABSOLUTE AUTO 1.2 K/mm3 (0.0-0.8); MONOCYTES PERCENT AUTO 10.5 % (0.0-8.0); NEUTROPHILS ABSOLUTE AUTO 6.8 K/mm3 (1.8-7.7); NEUTROPHILS PERCENT AUTO 61.9 % (41.0-71.0); NRBC ABSOLUTE 0.00 (0.00-0.02); NRBC PERCENT 0.0 % (0.0-0.2); PLATELET COUNT,PLT 242 K/mm3 (150-400); RED BLOOD CELL COUNT 4.80 M/mm3 (4.10-5.30); WHITE BLOOD CELL COUNT,WBC 10.95 K/mm3 (3.9-11.3)
[2025-08-02] MEDS: Ketorolac 30 MG/ML SDV IVPUSH ONE (13:17)
[2025-08-02] MEDS: Sodium Chloride 0.9% 10 ML Syringe FLUSH PRN (13:20)
[2025-08-02 13:35] LABS: A/G RATIO 1.2 (1-2); ALANINE AMINOTRANSFERASE,ALT 35.0 U/L (14-59); ASPARTATE AMNIOTRANSFERASE,AST 21.0 U/L (15-37); BILIRUBIN TOTAL 0.3 mg/dL (0.2-1.0); BLOOD UREA NITROGEN,BUN 16.0 mg/dL (7-18); CARBON DIOXIDE,CO2 29.0 mEq/L (21-32); CHLORIDE,CL 106.0 mEq/L (98-107); CREATININE 0.7 mg/dL (0.55-1.02); EST CRCL DRUG DOSING (CG) 68.93 mL/min; ESTIMATED GFR 98.0 mL/min (>60); GLUCOSE RANDOM 84.0 mg/dL (70-99); POTASSIUM,K 4.1 mEq/L (3.5-5.1); PROTEIN TOTAL,TP 7.2 g/dl (6.4-8.2); SODIUM,NA 143.0 mEq/L (136-145)
[2025-08-02] MEDS ORDERED: Dexamethasone 4 MG/ML SDV IVPUSH ONE (14:26)
[2025-08-02] MEDS: Ondansetron 4 MG/2 ML SDV IVPUSH ONE (14:39)
[2025-08-02] MEDS: Dexamethasone 10 MG/ML SDV IVPUSH ONE (14:49)
[2025-08-02 14:54] VITALS: BP 113/96; PULSE 68
== END 2025-08-02 15:00 | disposition home or self-care (01) ==
LOC: JD.ED 11:38
DX: G43.901 Migraine, unspecified, not intractable, with status migrainosus (principal); I10 Essential (primary) hypertension; Z88.2 Allergy status to sulfonamides; Z88.8 Allergy status to other drugs, medicaments and biological substances; Z79.899 Other long term (current) drug therapy; Z79.890 Hormone replacement therapy; Z86.16 Personal history of COVID-19; Z90.49 Acquired absence of other specified parts of digestive tract; Z90.710 Acquired absence of both cervix and uterus
CPT/HCPCS: 36415; 80053; 85025; 96361; 96374; 96375; 96376; 99283; A9270; J1100; J1200; J1885; J2405; J2765; J7030; J1171